=== PATIENT | female | born 1950 | race Caucasian/White ===

== ENCOUNTER → 2019-08-20 00:01 | Outpatient (BNVA) | payer MEDICARE, OTHER, SELFPAY | PROVIDERS: Family Provider Family Medicine; PCP Family Medicine; Visit Provider Family Medicine | DX: M79.641 Pain in right hand (principal) | CPT/HCPCS: 73130 ==

== ENCOUNTER → 2019-12-09 10:56 | Outpatient (BNVA) | payer MEDICARE, OTHER, SELFPAY | PROVIDERS: Family Provider Family Medicine; PCP Family Medicine; Visit Provider Family Medicine | DX: R06.02 Shortness of breath (principal); I10 Essential (primary) hypertension; J32.9 Chronic sinusitis, unspecified; M79.604 Pain in right leg; M79.605 Pain in left leg; Z86.718 Personal history of other venous thrombosis and embolism; D68.59 Other primary thrombophilia; D56.5 Hemoglobin E-beta thalassemia; E61.1 Iron deficiency; Z68.30 Body mass index [BMI] 30.0-30.9, adult | CPT/HCPCS: 80053; 82728; 83036; 83735; 83880; 84100; 84443; 84484; 85025; 85651; 86140 ==

== ENCOUNTER 2020-06-16 09:05 | Outpatient (CLI) | payer MEDICARE, OTHER, SELFPAY ==
--- NOTE | 2020-06-16 09:30 | USCV_ITS ---
Diamond Cochran Age: 70 Gender: F : 1950 Exam Date: 06/16/2020 09:45 Ordering Phys: Racquel Beverly MD ([email or web address]) Technologist: Gee Rosenthal Exam Location: [facility] [place] Indication: HISTORY: PROCEDURES: FINDINGS: There is no evidence of bilateral deep vein thrombosis. No evidence of superficial thrombosis in the bilateral saphenous system. There is reflux noted in the deep system within the popliteal veins bilaterally. There is reflux noted in the superficial system on the right within the SFJ, SSV PROX, and the SSV MID. There is reflux noted in the superficial system on the left within the GSV below the knee. CONCLUSIONS 1. No evidence of DVT in the above-mentioned identifiable veins. 2. The popliteal veins on both sides were found to have significant reflux of greater than 1000 ms. 3. On the right side, significant venous reflux of greater than 500 ms were noted at the proximal and mid small saphenous vein segments. These venous segments were found to be more than 1 cm deep from the surface and with a diameter of 0.61 and 0.69 cm respectively. Significant venous reflux also was noted at the saphenofemoral junction. 4. On the left side, significant venous reflux of greater than 500 ms was noted at the below-knee segment of the greater saphenous vein. This venous segment was greater than 1 cm deep from the surface and was measuring 0.81 cm in diameter The venous diameter , reflux times and depth from the surface are as mentioned above Dr Theresa Alexandra MD [facility] (Electronically Signed) Final Date: 16 June 2020 20:38 S
== END 2020-06-16 09:06 | disposition home or self-care (01) ==
PROVIDERS: PCP Family Medicine; Visit Provider Internal Medicine Cardiovascular Disease
DX: I83.813 Varicose veins of bilateral lower extremities with pain (principal)
CPT/HCPCS: 93970

== ENCOUNTER → 2020-06-29 09:45 | Outpatient (BNVA) | payer MEDICARE, OTHER, SELFPAY | PROVIDERS: PCP Family Medicine; Visit Provider Family Medicine | DX: I82.502 Chronic embolism and thrombosis of unspecified deep veins of left lower extremity (principal); Z95.828 Presence of other vascular implants and grafts | CPT/HCPCS: 85610 ==

== ENCOUNTER 2021-03-27 15:35 | Emergency (ER) | payer MEDICARE, OTHER, SELFPAY ==
[2021-03-27] VITALS (7 sets, daily range): BP systolic 138–184; BP diastolic 80–110; PULSE 72–80; RESP 16–18; TEMP 36.6–36.9; O2SAT 96–98; BMI 52.9
--- NOTE | 2021-03-27 16:38 | ECG_ITS ---
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 Measurements Intervals [place] Rate: 74 P: 57 [place]: 183 QRS: 38 QRSD: 94 T: 5 QT: 386 QTc: 429 Interpretive Statements SINUS RHYTHM Non specific T wave abnormality Compared to ECG 10/29/2017 01:01:00 T-wave abnormality no longer present Electronically Signed On 03-28-2021 21:07:55 CDT by Racquel Beverly M.D. [id number] f
--- NOTE | 2021-03-27 16:38 | CTR_ITS ---
PROCEDURE INFORMATION: Exam: CTA Chest With Contrast Exam date and time: 03/27/2021 4:38 PM Age: 70 years old Clinical indication: Shortness of breath; Patient HX: C/O SOB and HTN w HX of cvt and ivc filter; Additional info: SOB, pmh dvt TECHNIQUE: Imaging protocol: Computed tomographic angiography of the chest with contrast. 3D rendering (Not supervised by radiologist): MIP and/or 3D reconstructed images were created by the technologist. Total images: 814 Radiation optimization: All CT scans at this facility use at least one of these dose optimization techniques: automated exposure control; mA and/or kV adjustment per patient size (includes targeted exams where dose is matched to clinical indication); or iterative reconstruction. Contrast material: OMNI 350; Contrast volume: 68 ml; Contrast route: INTRAVENOUS (IV); COMPARISON: CT Cervical Spine wo* [id number] 10/29/2017 12:44 AM RADIATION DOSE METRICS: Total DLP (mGy-cm): 525.28 FINDINGS: Pulmonary arteries: No visible evidence of pulmonary embolism/pulmonary arterial thrombus. Aorta: The thoracic aorta is nonaneurysmal. No visible intimal flap or dissection. Mild arteriosclerosis. Lungs: No visible active interstitial or alveolar airspace disease. Evidence of mild air trapping of COPD/chronic bronchitis. Pleural spaces: Unremarkable. No pneumothorax. No pleural effusion. Heart: Cardiac size upper limits of normal. No visible pericardial effusion. No visible coronary artery disease. Lymph nodes: No visible active mediastinal or hilar lymphadenopathy. Gallbladder and bile ducts: Status post cholecystectomy. Bones/joints: No visible active or acute osseous pathology. Mild scoliotic curvature of the spine. Soft tissues: Unremarkable. Other findings: Marked obesity. Increased quantum mottle artifact which degrades image quality and detail assessment. CT/CT angio chest PE protcl [id number] IMPRESSION: No visible evidence of pulmonary embolism/pulmonary arterial thrombus. Radiation Dose CTDIVOL = (mGy): DLP = 525.28 (mGy-cm)
--- NOTE | 2021-03-27 16:39 | W.ED.GENADLT ---
HPI - General Adult General: Chief complaint: General Medical Stated complaint: High BP Time Seen by Provider: 03/27/21 16:24 History of Present Illness: HPI narrative: 70-year-old female who has a history of DVT and is on warfarin presents due to shortness of breath and lightheadedness. Reports elevated blood pressure to the 190s over 100 at home. States this has been ongoing for approximately a week and a half. Denies chest pain. Denies lower extremity pain. States she has chronic swelling in bilateral lower extremities. Denies fevers or chills or cough. Denies dysuria or any other focal pain. Denies focal weakness numbness or tingling. Denies any change in urine production. Review of Systems Narrative: - CONSTITUTIONAL: Denies weight loss, fever and chills. - HEENT: Denies changes in vision and hearing. - RESPIRATORY: As above - CV: Denies palpitations and CP. - GI: Denies abdominal pain, nausea, vomiting and diarrhea. - : Denies dysuria and urinary frequency. - MSK: Denies myalgia and joint pain. - SKIN: Denies rash and pruritus. - NEUROLOGICAL: Denies headache, weakness, numbness and syncope. - PSYCHIATRIC: Denies suicidal ideation PFSH ED PFSH: Medical History Chronic deep vein thrombosis of left lower extremity Chronic sinusitis CMC (carpometacarpal joint) sprains CMC arthritis, thumb, degenerative Cubital tunnel syndrome on right Encounter for monitoring Coumadin therapy Hx of deep venous thrombosis Hypertension Presence of IVC filter Varicose vein of leg Surgical History History of colon resection Hx of cholecystectomy Hx of exploratory laparotomy Hx of gastric bypass Hx of inguinal hernia repair Social History Alcohol intake: current Alcohol intake frequency: holidays/special occasions only Physical Exam Narrative: EXAM NARRATIVE: - GENERAL: Alert and oriented x 3. No acute distress. Well-nourished. - EYES: EOMI. Anicteric. - HENT: Atraumatic, no C-spine tenderness. Moist mucous membranes. No scleral icterus. No cervical lymphadenopathy. - LUNGS: Clear to auscultation bilaterally. No accessory muscle use. Equal lung sounds bilaterally. No respiratory distress. - CARDIOVASCULAR: Regular rate and rhythm. No murmur. No JVD. - ABDOMEN: Soft, non-tender and non-distended. Negative CVA tenderness bilaterally, no rebound or guarding, negative Hawthorne sign. No palpable masses. - EXTREMITIES: +2 bilateral lower extremity edema, non-tender. - SKIN: No rashes or lesions. Warm. - NEUROLOGIC: No meningismus or focal neurological deficits. CN II-XII grossly intact. - PSYCHIATRIC: Cooperative. Appropriate mood and affect. Course Vital Signs: Vital signs: Vital Signs Temperature 98.2 F 03/27/21 18:37 Pulse Rate 74 03/27/21 19:16 Respiratory Rate 16 03/27/21 19:16 Blood Pressure 148/82 03/27/21 19:16 Pulse Oximetry 98 03/27/21 19:16 MDM - General Adult MDM Narrative: Medical decision making narrative: 70-year-old female history of DVT presents with shortness of breath and elevated blood pressure reading. Was found to be hypertensive with significant improvement with clonidine. CT scan does not reveal any signs of PE. EKG and troponins do not reveal any sign of acute ischemia or other acute abnormality remainder of lab work is unremarkable. X-ray does not reveal pneumothorax or consolidation. Upon further review patient does admit that she is not taking her Lasix as prescribed and does have lower extremity edema. Instructed her to take her Lasix as prescribed. This will also improve the blood pressure. At this time I believe patient would be safe for discharge and outpatient follow-up. Return precautions provided. Plan was reviewed with the patient who expressed understanding. Questions answered. Patient will follow up with PCP. Patient discharged in stable condition. Lab Data: Labs: Lab Results 03/27/21 03/27/21 03/27/21 16:53 17:11 17:11 WBC 6.3 10^3/uL 10^3/ uL (4.0-10.0) RBC 4.81 10^6/uL 10^6 /uL (4.1-5.3) Hgb 13.8 g/dL g/dL (11.5-15.3) Hct 44.4 % % (37.0-47.0) MCV 92.3 fl fl (81-99) MCH 28.7 pg pg (28.0-34.0) MCHC 31.1 g/dL g/dL (30.0-36.0) RDW 14.2 % % (12.1-15.1) Plt Count 298 10^3/cmm 10^3 /cmm (130-400) MPV 9.2 fL fL (7.4-10.4) Neut % (Auto) 59.9 % % Lymph % (Auto) 30.9 % % Thayer % (Auto) 7.8 % % Eos % (Auto) 0.6 % % Baso % (Auto) 0.6 % % Neut # (Auto) 3.79 10^3/uL 10^3 /uL (1.8-7.7) Lymph # (Auto) 2.0 10^3/uL 10^3/ uL (0.8-4.8) Thayer # (Auto) 0.5 10^3/uL 10^3/ uL (0.2-0.9) Eos # (Auto) 0.0 10^3/uL 10^3/ uL (0.0-0.8) Baso # (Auto) 0.0 10^3/uL 10^3/ uL (0.0-0.1) Nucleated RBC % (a uto) 0 % % Nucleated RBCs # 0.0 /100WBC /100W BC PT 26.40 SECONDS H S ECONDS (12.1-14.9) INR 2.38 H (0.8-1.2) APTT 47.1 SECONDS H SE CONDS (23.9-36.7) Sodium Potassium Chloride Carbon Dioxide Anion Gap BUN Creatinine GFR Calculation Glucose Calculated Osmolal ity Calcium Total Bilirubin AST ALT Alkaline Phosphata se Troponin T Baselin e Troponin T 120 Min macie Delta Troponin T NT-Pro-B Natriuret Pep Total Protein Albumin Globulin TSH Urine Color Yellow (Yellow) Urine Appearance Clear (CLEAR) Urine pH 5 (5-7) Ur Specific Gravit y 1.010 (1.005-1.030) Urine Protein Neg (Negative) Urine Glucose (UA) Norm (Normal) Urine Ketones Negative (Negative) Urine Blood Neg (Negative) Urine Nitrate Negative (Negative) Urine Bilirubin Neg (Negative) Urine Urobilinogen Norm mg/dL mg/dL (Negative) Ur Leukocyte Larissa ase Negative (Negative) Urine RBC None /hpf /hpf (0-2) Urine WBC Rare /hpf /hpf (0-5) Ur Squamous Epith Cells Rare /hpf /hpf (0-5) Amorphous Sediment Not Reportable Urine Bacteria Trace /hpf /hpf (NONE) 03/27/21 03/27/21 03/27/21 17:11 17:11 19:15 WBC RBC Hgb Hct MCV MCH MCHC RDW Plt Count MPV Neut % (Auto) Lymph % (Auto) Thayer % (Auto) Eos % (Auto) Baso % (Auto) Neut # (Auto) Lymph # (Auto) Thayer # (Auto) Eos # (Auto) Baso # (Auto) Nucleated RBC % (a uto) Nucleated RBCs # PT INR APTT Sodium 141 mmol/L mmol/L (136-145) Potassium 4.1 mmol/L mmol/L (3.5-5.1) Chloride 106 mmol/L mmol/L (98-107) Carbon Dioxide 27 mmol/L mmol/L (22-29) Anion Gap 12.1 (5-19) BUN 12 mg/dL mg/dL (8-23) Creatinine 0.6 mg/dL mg/dL (0.5-0.9) GFR Calculation 99.1 mL/min mL/mi n (90-130) Glucose 105 mg/dL mg/dL (65-115) Calculated Osmolal ity 292 mOsm/kg mOsm/ kg (285-295) Calcium 9.0 mg/dL mg/dL (8.5-10.5) Total Bilirubin 0.4 mg/dL mg/dL (0.15-1.2) AST 21 U/L U/L (0-32) ALT 17 U/L U/L (0-33) Alkaline Phosphata se 96 IU/L IU/L (35-105) Troponin T Baselin e 6 ng/L ng/L (0-10) Troponin T 120 Min macie 6.00 ng/L ng/L (0-10) Delta Troponin T 0 ABS# ABS# (0-10) NT-Pro-B Natriuret Pep 185 pg/mL H pg/mL (0-125) Total Protein 6.9 g/dL g/dL (6.6-8.7) Albumin 4.2 g/dL g/dL (3.5-5.2) Globulin 2.7 g/dL g/dL (1.3-4.6) TSH 3.16 uIU/mL uIU/m L (0.27-4.20) Urine Color Urine Appearance Urine pH Ur Specific Gravit y Urine Protein Urine Glucose (UA) Urine Ketones Urine Blood Urine Nitrate Urine Bilirubin Urine Urobilinogen Ur Leukocyte Larissa ase Urine RBC Urine WBC Ur Squamous Epith Cells Amorphous Sediment Urine Bacteria EKG Data^: EKG 1: Computer generated interpretation: Chest CTA 03/27/21 16:38 IMPRESSION: No visible evidence of pulmonary embolism/pulmonary arterial thrombus. Radiation Dose CTDIVOL = (mGy): DLP = 525.28 (mGy-cm) Other EKG comments: Normal sinus rhythm, rate of 74, no sign of acute ischemia or other acute abnormality. EKG 2: Computer generated interpretation: Chest CTA 03/27/21 16:38 IMPRESSION: No visible evidence of pulmonary embolism/pulmonary arterial thrombus. Radiation Dose CTDIVOL = (mGy): DLP = 525.28 (mGy-cm) Other EKG comments: Normal sinus rhythm with PVC, rate of 63, otherwise no sign of acute ischemia or other acute abnormality. Discharge Plan Discharge Prescriptions: No Action multivitamin with minerals [Hair,Skin and Nails] Tablet 2 tab PO ONCE RF: 0 warfarin 5 mg tablet 5 mg PO DAILY Qty: 360 RF: 0 loratadine [Claritin] 10 mg tablet 10 mg PO DAILY 90 Days Qty: 90 RF: 1 cyclobenzaprine 5 mg tablet 5 mg PO TID PRN (Reason: muscle spasm) 30 Days Qty: 90 RF: 0 fluticasone propionate [Flonase Allergy Relief] 50 mcg/actuation spray,suspension 1 spray intranasal BID Qty: 16 RF: 0 epinephrine [EpiPen] 0.3 mg/0.3 mL auto-injector 0.3 mg IM Q10M PRN (Reason: anaphylaxis) Qty: 2 RF: 0 warfarin 5 mg tablet See Rx Instructions mg .ROUTE QDAY Qty: 45 RF: 2 sennosides-docusate sodium [Senna with Docusate Sodium] 8.6-50 mg tablet 2 tab-cap PO TID PRN (Reason: constipation) Qty: 60 RF: 0 multivitamin Tablet 1 tab PO DAILY RF: 0 Singulair 10 mg tablet 10 mg PO BEDTIME RF: 0 amlodipine 2.5 mg Tablet 2.5 mg PO DAILY MDD SEE PHARMACY COMMENT PRN (Reason: Blood Pressure) RF: 0 Colace 100 mg Capsule 100 mg PO QID PRN (Reason: Constipation) RF: 0 hydrochlorothiazide 25 mg Tablet 25 mg PO DAILY RF: 0 Coding Level of Care Code ED Photo Finish Photographer for Gilesg Emily
[2021-03-27] MEDS: cloNIDine 0.1 mg Tablet 0.2 MG PO (17:19)
[2021-03-27 17:22] LABS: Basophils % 0.6 %; Eosinophils % 0.6 %; Hematocrit 44.4 % (37.0-47.0); Hemoglobin 13.8 g/dL (11.5-15.3); Lymphocytes % 30.9 %; Mean Corpuscular HGB Conc 31.1 g/dL (30.0-36.0); Mean Corpuscular Hemoglobin 28.7 pg (28.0-34.0); Mean Corpuscular Volume 92.3 fl (81-99); Mean Platelet Volume 9.2 fL (7.4-10.4); Monocytes # 0.5 10^3/uL (0.2-0.9); Monocytes % 7.8 %; Neutrophils # 3.79 10^3/uL (1.8-7.7); Neutrophils % 59.9 %; Nucleated Red Blood Cells % 0 %; Platelet Count 298 10^3/cmm (130-400); Red Blood Count 4.81 10^6/uL (4.1-5.3); Red Cell Distribution Width 14.2 % (12.1-15.1); White Blood Count 6.3 10^3/uL (4.0-10.0)
[2021-03-27 17:32] LABS: Bacteria Urine TRACE /hpf; Bilirubin Urine Neg (Negative); Blood Urine Neg (Negative); Glucose Urine UA Norm (Normal); Ketones Urine Negative (Negative); Leukocyte Esterase Urine Negative (Negative); Nitrate Urine Negative (Negative); Protein Urine Neg (Negative); Squamous Epithelial Cell Urine RARE /hpf (0-5); Urine Appearance Clear (CLEAR); Urine Color Yellow (Yellow); Urobilinogen Urine Norm (Negative); WBC Urine RARE /hpf (0-5); pH Urine 5 (5-7)
[2021-03-27 17:33] LABS: Add Urine Culture? No
[2021-03-27 17:38] LABS: INR 2.38 (0.8-1.2)
[2021-03-27 17:39] LABS: Partial Thromboplastin Time 47.1 SECONDS (23.9-36.7)
[2021-03-27 17:56] LABS: Troponin(5th) Baseline 6 ng/L (0-10)
[2021-03-27 18:03] LABS: Alanine Aminotransferase 17 U/L (0-33); Albumin Level 4.2 g/dL (3.5-5.2); Alkaline Phosphatase 96 IU/L (35-105); Anion Gap 12.1 (5-19); Aspartate Amino Transferase 21 U/L (0-32); Blood Urea Nitrogen 12 mg/dL (8-23); Carbon Dioxide 27 mmol/L (22-29); Chloride 106 mmol/L (98-107); Globulin 2.7 g/dL (1.3-4.6); Glomerular Filtration Rate 99.1 mL/min (90-130); Glucose 105 mg/dL (65-115); NT Pro B Type Natriuretic Pept 185 pg/mL (0-125); Osmolality Calculated 292 mOsm/kg (285-295); Potassium 4.1 mmol/L (3.5-5.1); Sodium 141 mmol/L (136-145); Thyroid Stimulating Hormone 3.16 uIU/mL (0.27-4.20); Total Bilirubin 0.4 mg/dL (0.15-1.2); Total Protein 6.9 g/dL (6.6-8.7)
[2021-03-27] MEDS: iohexol 350 mg/mL 100 mL Btl IV (18:20)
--- NOTE | 2021-03-27 18:38 | ECG_ITS ---
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 Measurements Intervals [place] Rate: 63 P: 33 NE: 162 QRS: 38 QRSD: 90 T: 1 QT: 415 QTc: 425 Interpretive Statements SINUS RHYTHM WITH OCCASIONAL VENTRICULAR PREMATURE COMPLEXES Non specific T wave abnormality Compared to ECG 03/27/2021 17:27:59 Ventricular premature complex(es) now present Electronically Signed On 03-28-2021 21:28:02 CDT by Racquel Beverly M.D. [id number] f
[2021-03-27 19:46] LABS: Troponin 5 2HR Delta 0 ABS# (0-10)
== END 2021-03-27 20:21 | disposition home or self-care (01) ==
PROVIDERS: Emergency Provider Emergency Medicine; PCP Family Medicine
DX: R06.02 Shortness of breath (principal); R42 Dizziness and giddiness; Z79.01 Long term (current) use of anticoagulants; I10 Essential (primary) hypertension
CPT/HCPCS: 71275; 80053; 81001; 83880; 84443; 84484; 85025; 85610; 85730; 93005; 99284; Q9967

== ENCOUNTER → 2021-04-05 00:01 | Outpatient (BNVA) | payer MEDICARE, OTHER, SELFPAY | PROVIDERS: PCP Family Medicine; Visit Provider Registered Nurse | DX: M79.10 Myalgia, unspecified site (principal); I10 Essential (primary) hypertension | CPT/HCPCS: 80061; 82306; 82607 ==

== ENCOUNTER 2021-07-05 20:00 | Outpatient (CLI) | payer MEDICARE, OTHER, SELFPAY | END 2021-07-05 20:01 | disposition home or self-care (01) | LOC: SLEEP 07-06 07:43 | PROVIDERS: PCP Registered Nurse; Visit Provider Registered Nurse | DX: R53.82 Chronic fatigue, unspecified (principal); G47.10 Hypersomnia, unspecified; I10 Essential (primary) hypertension; G47.33 Obstructive sleep apnea (adult) (pediatric) | CPT/HCPCS: 95810 ==

== ENCOUNTER → 2021-09-20 11:00 | Outpatient (BNVA) | payer MEDICARE, OTHER, SELFPAY | PROVIDERS: PCP Registered Nurse; Visit Provider Internal Medicine Cardiovascular Disease | DX: I10 Essential (primary) hypertension (principal); I83.813 Varicose veins of bilateral lower extremities with pain; Z95.828 Presence of other vascular implants and grafts; Z86.718 Personal history of other venous thrombosis and embolism; K56.609 Unspecified intestinal obstruction, unspecified as to partial versus complete obstruction; Z87.891 Personal history of nicotine dependence; Z79.01 Long term (current) use of anticoagulants | CPT/HCPCS: 99213; 99214 ==

== ENCOUNTER → 2021-11-16 11:03 | Outpatient (BNVA) | payer MEDICARE, OTHER, SELFPAY | PROVIDERS: PCP Registered Nurse; Visit Provider Registered Nurse | DX: R05.9 Cough, unspecified (principal); Z20.822 Contact with and (suspected) exposure to COVID-19 | CPT/HCPCS: 87400; 87635 ==

== ENCOUNTER → 2022-05-26 11:56 | Outpatient (BNVA) | payer MEDICARE, OTHER, SELFPAY | PROVIDERS: PCP Registered Nurse; Visit Provider Registered Nurse | DX: E78.5 Hyperlipidemia, unspecified (principal); I10 Essential (primary) hypertension | CPT/HCPCS: 80053; 80061; 85025 ==

== ENCOUNTER 2022-05-31 11:22 | Outpatient (CLI) | payer MEDICARE, OTHER, SELFPAY ==
--- NOTE | 2022-05-31 11:33 | MM_ITS ---
WS: [id number] BILATERAL SCREENING DIGITAL TOMOSYNTHESIS MAMMOGRAM WITH CAD HISTORY: Z12.31 - Encounter for screening mammogram for malignant ... COMPARISON: 07/03/2018, 09/19/2011, 07/01/2016 Bilateral CC and MLO views with tomosynthesis and synthetic mammography submitted. Computer aided det ection analyzed. Breast composition: The breasts are heterogeneously dense, which may obscure small masses. No suspici ous masses, microcalcifications or architectural distortion. Well-circumscribed mass posterior to the RIGHT nipple measures 7 mm. Stable and present on the study from 2016. Cluster of lymph nodes upper outer quadrant LEFT breast. MM/[place] [id number] IMPRESSION: BI-RADS: 2-Benign FOLLOW UP: 1 Year Follow-up
--- NOTE | 2022-05-31 11:41 | XR_ITS ---
WS: [id number] DEXA (DUAL ENERGY X-RAY ABSORPTIOMETRY) Bone mineral density was performed using a Azullo machine. HISTORY: M81.0 - Age-related osteoporosis without current pathological fracture... COMPARISON: None available. Lumbar spine BMD (L1-L4): 1.206 g/cm2 T score: 0.2 Z score: 0.7 Total hip BMD: Left: 0.705 g/cm2. T score: -2.4 Z score: -1.7 Right: 0.608 g/cm2. T score: -3.2 Z score: -2.5 10 year probability of a major osteoporotic fracture is 14.2%. XR/XR DEXA axial skeleton* [id number] IMPRESSION: OSTEOPOROSIS based upon the WHO classification for females.
== END 2022-05-31 11:23 | disposition home or self-care (01) ==
PROVIDERS: PCP Registered Nurse; Visit Provider Registered Nurse
DX: Z12.31 Encounter for screening mammogram for malignant neoplasm of breast (principal); M81.0 Age-related osteoporosis without current pathological fracture
CPT/HCPCS: 77063; 77067; 77080

== ENCOUNTER → 2022-06-27 10:20 | Outpatient (BNVA) | payer MEDICARE, OTHER, SELFPAY | PROVIDERS: PCP Registered Nurse; Visit Provider Internal Medicine Cardiovascular Disease | DX: R07.89 Other chest pain (principal); I10 Essential (primary) hypertension; Z95.828 Presence of other vascular implants and grafts; Z86.718 Personal history of other venous thrombosis and embolism; K56.609 Unspecified intestinal obstruction, unspecified as to partial versus complete obstruction; I83.813 Varicose veins of bilateral lower extremities with pain; Z87.891 Personal history of nicotine dependence; Z79.01 Long term (current) use of anticoagulants | CPT/HCPCS: 99214; Q3014 ==

== ENCOUNTER → 2022-08-04 11:49 | Outpatient (BNVA) | payer MEDICARE, OTHER, SELFPAY | PROVIDERS: PCP Registered Nurse; Visit Provider Registered Nurse | DX: Z51.81 Encounter for therapeutic drug level monitoring (principal); Z79.01 Long term (current) use of anticoagulants | CPT/HCPCS: 85610 ==

== ENCOUNTER 2022-08-10 11:43 | Outpatient (CLI) | payer MEDICARE, OTHER, SELFPAY ==
[2022-08-10 12:28] LABS: INR 1.51 (0.8-1.2)
== END 2022-08-10 11:44 | disposition home or self-care (01) ==
LOC: LAB 11:48
PROVIDERS: PCP Registered Nurse; Visit Provider Registered Nurse
DX: Z86.718 Personal history of other venous thrombosis and embolism (principal); Z79.01 Long term (current) use of anticoagulants
CPT/HCPCS: 36415; 85610

== ENCOUNTER 2022-09-16 08:18 | Outpatient (CLI) | payer MEDICARE, OTHER, SELFPAY ==
--- NOTE | 2022-09-16 | ECG_ITS ---
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 Interpretive Statements NAME OF STUDY: LEXISCAN SESTAMIBI STRESS TEST INDICATION: [Shortness of Breath, ] Procedure: At the baseline, the blood pressure was 125/82 mmHg with a heart rate of 62 bpm. The electrocardiogram showed normal sinus rhythm, normal axis with normal ST and T's. The Lexiscan was infused over a period of 20 seconds. A total of 0.4 mg of Lexiscan was infused. The stress phase was continued for a total of 5 minutes. Heart rate was at the end of stress phase was 74 bpm and a blood pressure of 128/65 mmHg. The EKG at the peak infusion revealed normal sinus rhythm with no significant ST-T wave changes. Sestamibi was injected 20 seconds after the Lexiscan infusion. Blood pressure at the end of recovery phase was 134/67 mmHg with a heart rate of 74 bpm. Conclusion: 1. Normal EKG response to Lexiscan infusion 2. No Lexiscan induced chest pain or cardiac arrhythmia. 3. Normal blood pressure and heart rate response. 4. Sestamibi/sestamibi perfusion scan pending; see separate report. Electronically Signed On 09-18-2022 14:30:58 CDT by Ismael Rand M.D. [id number]
[2022-09-16 08:25] VITALS: BMI 48.4
--- NOTE | 2022-09-16 08:26 | NMCV_ITS ---
NM agustin perf SPECT r/s* [id number] Diamond Cochran Age: 72 Gender: F : 1950 Exam Date: 09/16/2022 09:52 Ordering Phys: Racquel Beverly MD ([email or web address]) Technologist: EMRE Marin Exam Location: [facility] Indications: CHEST PAIN STRESS TEST Please see separate stress test report in [facility] for full findings IMAGE PROTOCOL Rest/Stress 1 Lexiscan Day Radiopharmaceutical Dose (mCi) Administration Site Administered by Rest: Tc-99m 10.5 IV Kale Britt, BRIDGE LEVERMAN Sestamibi Stress:Tc-99m 32.3 IV Kale Britt, BRIDGE LEVERMAN Sestamibi Rest: 16-Sep-2022 60 Discovery 630 Stress: 16-Sep-2022 30 Discovery 630 0.4mg Lexiscan. Supine position only as patient was unable to lay prone. SPECT RESULTS Technical Quality: Excellent Raw Data Analysis: Normal, Breast attenuation Image Corrections: No attenuation or motion correction applied Summed Stress Score: 4 Summed Rest Score: 5 Summed Difference Score: 1 PERFUSION FINDINGS There is a medium sized, partially reversible perfusion defect noted in the inferolateral wall. This is consistent with medium sized area of prior infarct with significant daphne-infarct ischemia in left circumflex artery territory. FUNCTIONAL RESULTS (calculated via Gated SPECT) Stress Image LV EF (%): 85 Stress EDV (mL):102 TID: 1.16 Stress ESV (mL):15 FUNCTIONAL FINDINGS: There is normal left ventricular systolic function. IMPRESSIONS 1. 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 2. LV systolic function is normal Ismael Rand MD (Electronically Signed) Final Date: 17 September 2022 15:14 S
[2022-09-16] MEDS: regadenoson 0.4 Mg/5 ml Syringe IVP (11:25)
[2022-09-16 11:47] VITALS: BP 134/67; PULSE 76
== END 2022-09-16 08:19 | disposition home or self-care (01) ==
LOC: CDL 08:21
PROVIDERS: PCP Registered Nurse; Visit Provider Internal Medicine Cardiovascular Disease
DX: R07.9 Chest pain, unspecified (principal)
CPT/HCPCS: 36415; 78452; 93017; 96374; A9500; J2785

== ENCOUNTER → 2022-10-03 11:48 | Outpatient (BNVA) | payer MEDICARE, OTHER, SELFPAY | PROVIDERS: PCP Registered Nurse; Visit Provider Registered Nurse | DX: E53.8 Deficiency of other specified B group vitamins (principal); R06.02 Shortness of breath; I10 Essential (primary) hypertension; E55.9 Vitamin D deficiency, unspecified | CPT/HCPCS: 80048; 82306; 82607; 83880; 85025; 85610 ==

== ENCOUNTER 2022-10-10 08:55 | Outpatient (CLI) | payer MEDICARE, OTHER, SELFPAY ==
[2022-10-10] VITALS (9 sets, daily range): BP systolic 142–186; BP diastolic 70–107; PULSE 62–72; RESP 13–16; TEMP 37.1; O2SAT 96–98; BMI 49.4
--- NOTE | 2022-10-10 09:00 | XACV_ITS ---
Exam Room: 2 Ht: 157 cm Wt: 122 kg BSA: 2.39 m2 Gender: Female : 1950 Any Known Allergies: Other Exam Priority: Routine Procedure(s): Procedure Description: Diagnostic procedure Procedure Description: Left Heart Catheterization Procedure Description: Left ventriculography Procedure Description: Coronary Angiography Diagnostic Cath Status: Elective Diagnostic Findings * INDICATION: Worsening dyspnea on exertion/abnormal stress test. * Left Main has no significant disease. * Distal Right Coronary Artery: mild 40% stenosis, LESLIE: 3 flow. * Left Anterior Descending has no disease. * Mid Circumflex: moderate 50% stenosis, LESLIE: 3 flow. * Coronary angiography shows right dominance. Conclusions 1. Non-obstructive coronary artery disease. 2. Normal left ventricular systolic function. Ejection fraction of 60%. Recommendations * Aggressive risk factor modification. * Outpatient cardiology follow up in 4 weeks. Interventional RX Recommendation: medical therapy and/or counseling Diagnostic RX Recommendation: medical therapy and/or counseling Ventriculography Ejection Fraction: 60.0 % Pressures Phase:Rest AO : 156 / 86 ( 116 ) @ 12:07:00 PM 163 / 86 ( 121 ) @ 12:10:00 PM 161 / 72 ( 111 ) @ 12:15:00 PM 161 / 72 ( 111 ) @ 12:15:00 PM LV : 158 / -11 / 9 @ 12:13:00 PM 171 / -14 / 10 @ 12:14:00 PM 169 / -13 / 13 @ 12:15:00 PM Valves Phase:DefaultPhase AV : 7.0 @ 11:24:05 AM 7.0 @ 11:24:05 AM AV Mean Gradient: 11.0 @ 11:24:05 AM Clinical Evaluation EBL: 5mL-10mL Procedural Details Procedure Consent Obtained. Admit Source: Out Patient. Pre-Procedure Time Out. Identified patient by full name and date of as verbalized by the patient/guarantor. Does the consent match the physician's order: Yes. Accurate & Complete Informed Consent: Yes. Inpatient/Outpatient History & Physical on Chart: Yes. If H&P is completed, is and addenduem needed: No; If yes, is the addendum complete: N/A. Visualize and Verify Site with Patient/Guarantor: N/A. Relevant Radiology Images available: Yes. The risks, benefits, and alternatives of sedation and/or procedure were discussed by physician. The patient agrees to continue. Procedure started. [facility] Clinical Fraility Score: 3: Managing Well. Medical Record Assistant Indications: Worsening Angina. Chest Pain Symptom Assessment: Typical Angina Symptoms. Correct patient, site and procedure confirmed by cath team. Current diagnosis: Chest Pain, Abnormal stress test. PERRLA. 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 Lungs clear x 5 lobes. IV Site on Arrival: 20 gauge in the right anticubital. IV Fluids: 0.9% NaCl at 75ml/hr. 0 mL infused prior to chemical lab supervisor. Pre Procedural Pulses: bilateral radial was 3+. Pre Procedural Pulses: bilateral posterior tibial was 1+. Pre Procedural Pulses: bilateral dorsalis pedis was 1+. Oxygen started at 2liters/min via nasal canula. right radial was prepped with chloroprep then draped in the usual sterile fashion. right groin was prepped with chloroprep then draped in the usual sterile fashion. Physician notified. Baseline sample Acquired. HR: 79 BPM. Physician arrived. Physician scrubbed in. Immediate Pre-Procedure Time Out. Correct Patient: Yes; Correct Procedure: Yes; Correct Site: Yes; Correct Patient Position: Yes; Correct Supplies: Yes; Dried Flammable Prep: Yes; Blood Products Available: No;. Lidocaine 1% infiltrated to the right radial. Arterial access obtained. Unable to advance access wire, wire and needle out. Ultrasound obtained to assist with femoral artery access. Lidocaine 1% infiltrated to the right groin. Arterial access obtained with micropuncture set. Lidocaine 1% infiltrated to the right groin. A 5 maltese JL4 catheter in over wire. Multiple views taken of left coronary artery. Catheter removed over the exchange wire. A 5 maltese JR4 catheter in over wire. Multiple views taken of right coronary artery. Catheter removed over the exchange wire. A 5 maltese Angled Pig catheter in over wire. EDP Sample taken: LV 158/-12,9; HR: 73 BPM; SpO2: 98%. LV gram performed in [place] @ 10 mL/second for a total of 30 mL. EDP Sample taken: LV 171/-15,10; HR: 77 BPM; SpO2: 99%. Pullback taken: LV 169/-14,13; AO 161/72(111); Mean: 11mmHg, Peak to Peak: 7mmHg, SEP: 21sec/min; HR: 75 BPM; SpO2: 99%. Catheter removed over the exchange wire. A Right femoral angiogram was performed to determine safe placement of closure device. Lidocaine 1% infiltrated to the right groin. Post Procedure: Pulses reassessed and unchanged. PERRLA. 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 No VTE prophylaxis required. Medication's Wasted: Heparin = 1000 unit. Medication's Wasted: Nitro = 49.8 mg. Total IV fluids: 35 mL. A Angio-Seal VIP ([facility]) was successful obtaining hemostatsis at the Right Femoral artery insertion site. EXP 04-11-2023 LOT # [id number]. Post-op diagnosis: Non-obstructive CAD. Complications: None. Estimated blood loss: 5mL-10mL. Responsiveness - Normal response to verbal stimuli; alert and oriented, PERRLA. Airway - Unaffected, no intervention required; spontaneous ventilation. Circulation: W/N/L, pulses unchanged. Nausea/Vomiting: No. Procedure completed. Patient transferred by stretcher to CPRU. Vital chart was stopped. Access Site Site: Right Femoral artery Sheath Size: 6 Fr Hemostasis Method: Angio-Seal VIP ([facility]) Hemostasis Success: Successful Procedure Medications Start: 10:50 AM Stop: 10:50 AM Medication: Versed Amount: 1 mg Route: I.V. Start: 10:53 AM Stop: 10:53 AM Medication: Fentanyl Amount: 25 mcg Route: I.V. Start: 10:56 AM Stop: 10:56 AM Medication: Nitrogylcerin Amount: 200 mcg Route: I.A. Start: 10:58 AM Stop: 10:58 AM Medication: Versed Amount: 1 mg Route: I.V. Start: 10:58 AM Stop: 10:58 AM Medication: Fentanyl Amount: 25 mcg Route: I.V. Start: 11:04 AM Stop: 11:04 AM Medication: Versed Amount: 1 mg Route: I.V. Start: 11:16 AM Stop: 11:16 AM Medication: Fentanyl Amount: 50 mcg Route: I.V. Start: 11:18 AM Stop: 11:18 AM Medication: Versed Amount: 1 mg Route: I.V. I, the attending physician, have reviewed and verified all procedure medications. Yes, all medications given per verbal order History/Risk Factors Hypertension: Yes Dyslipidemia: Yes Peripheral Arterial Disease (PAD): No Myocardial Infarction (IL): No Obesity: No Renal Disease: No Tobacco Use: Former Prior Interventions PCI: No CABG: No Valve Surgery: No Report Signatures Finalized by Ismael Rand MD on 10/24/2022 08:57 AM
[2022-10-10] MEDS: diphenhydrAMINE 50 mg Capsule PO (09:55)
[2022-10-10] MEDS: aspirin 325 mg Tablet PO (09:55)
--- NOTE | 2022-10-10 11:35 | SUR.EXTENDED ---
Received the patient back from the open hearth laborer via cot s/p diagnostic LHC. Patient drowsy but, awakens to voice. A & O x3. Dressing to right groin dry and intact. ANgioseal was place din the open hearth laborer. No bleeding or hematoma noted. financial services assistant placed and vital signs obtained. NS infusing at 75ml/hr fromthe open hearth laborer to the PIV in the right AC. patient with no concerns voiced at this time.
--- NOTE | 2022-10-10 12:30 | P.HP_ITS ---
Same Day Surgery H&P Indication for Procedure/HPI DATE OF PROCEDURE: October 10, 2022 CHIEF COMPLAINT/INDICATIONFOR SURGICAL PROCEDURE: Worsening dyspnea on exertion/abnormal stress test PREOP DIAGNOSIS: Worsening dyspnea on exertion/abnormal stress test PLANNED PROCEDURE: Operation Date: 10/10/22 10:00 Proposed Procedures p [facility] w/wo 84828,R07.9,R94.39(Left) - Ismael Rand M.D Possible percutaneous coronary intervention 72-year-old woman with past medical history of DVTs, hypertension who has been having worsening dyspnea on exertion. In her chart pulmonary embolism history as mentioned however she denies any history of PE mentions that she had multiple DVTs and has IVC filter in place. She had a stress test that was abnormal. Plan for coronary angiogram with possible percutaneous coronary intervention. Medications/Allergies* Home Medications Medication Instructions Recorded Confirmed Type cholecalciferol (vitamin D3) 25 25 mcg PO DAILY 05/26/21 10/07/22 History mcg (1,000 unit) capsule ibuprofen 200 mg tablet 200 mg PO Q6H PRN Pain 06/27/22 10/10/22 History cetirizine 10 mg tablet (Zyrtec) 10 mg PO DAILY 10/07/22 10/07/22 History docusate sodium 100 mg capsule 200 mg PO BID 10/07/22 10/07/22 History (Colace) multivitamin with minerals 2 tab PO DAILY 10/07/22 10/07/22 History (Hair,Skin and Nails tablet) potassium 99 mg tablet 198 mg PO DAILY 10/07/22 10/07/22 History Allergies/Adverse Reactions Allergy/AdvReac Type Severity Reaction Status Date / Time bee venom protein (honey bee) Allergy ALGY-Anaphy Verified 10/10/22 10:42 laxis egg Allergy Unknown Verified 10/10/22 10:42 hydrocodone Allergy Unknown Verified 10/10/22 10:42 milk Allergy Unknown Verified 10/10/22 10:42 procaine [From Novocain] Allergy Unknown Verified 10/10/22 10:42 Current Medications: Generic Name Dose Route Start Last Admin Trade Name Freq PRN Reason Stop Dose Admin Sodium Chloride 1,000 mls @ 50 mls/hr 10/10/22 09:00 10/10/22 09:18 Sodium Chloride 0.9% IV 05/02/23 04:59 Not Given .Q20H ONE Pertinent History/Comorbid Conditions* Medical History (Updated 10/04/22 @ 12:08 by EUGENE Thompson) 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 of left lower extremity CMC (carpometacarpal joint) sprains CMC arthritis, thumb, degenerative Cubital tunnel syndrome on right Encounter for monitoring Coumadin therapy Hx of deep venous thrombosis Hypercholesterolemia Hypertension Presence of IVC filter Varicose veins of both lower extremities Venous stasis of both lower extremities Surgical History (Updated 12/03/19 @ 20:57 by Racquel Beverly MD) History of colon resection Hx of cholecystectomy Hx of exploratory laparotomy Hx of gastric bypass Hx of inguinal hernia repair Family History (Updated 05/26/22 @ 15:33 by Giuliana Quiroga LPN) Heart disease Brother Father Cancer Grandmother breast cancer(paternal) uterus(maternal) Mother throat Brother Denies family history of Diabetes Chronic kidney disease (CKD) Lung disease Social History Smoking and tobacco status: former smoker (quit in 1980) Alcohol intake: current Alcohol intake frequency: holidays/special occasions only Substance/Drug Use: never Adopted: No Caregiver/support person: No Lives independently: No Household members: spouse Marital status: service: No Current occupational status: retired Sexually active: Yes Do you think of yourself as: Straight/Heterosexual Current gender identity: Female Pertinent Exam Findings alert, oriented x 3, clear to auscultation bilaterally and regular rate & rhythm Conscious Sedation Assessment PATIENT ASSESSED PRIOR TO SEDATION, WITH NO CHANGE NOTED: Yes AIRWAY EVAL/ANESTHESIA PLAN: normal airway, see other exam findings, ASA III, Local Anesthesia, Risks, benefits & alternatives of sedation and/or procedure discussed and Patient agrees to continue as planned Recommendations Surgery/Procedure today (Left heart cath with possible percutaneous coronary intervention) Coding Level of Care Code Acute Code for Chg Fwd Diagnoses
== END 2022-10-10 18:45 | disposition home or self-care (01) ==
LOC: CCL 08:57 → CSU 15:19
PROVIDERS: PCP Registered Nurse; Visit Provider Internal Medicine
DX: I25.10 Atherosclerotic heart disease of native coronary artery without angina pectoris (principal); R93.49 Abnormal radiologic findings on diagnostic imaging of other urinary organs; R94.39 Abnormal result of other cardiovascular function study; Z86.718 Personal history of other venous thrombosis and embolism; I10 Essential (primary) hypertension; Z87.891 Personal history of nicotine dependence; E78.5 Hyperlipidemia, unspecified
CPT/HCPCS: 36415; 93458; 96361; 96365; 99152; 99153; C1760; C1769; C1887; C1894; G0269; J1644; J2250; J3010; J3490; J7030; Q0163; Q9967

== ENCOUNTER → 2022-10-20 13:59 | Outpatient (BNVA) | payer MEDICARE, OTHER, SELFPAY | PROVIDERS: PCP Registered Nurse; Visit Provider Nurse Practitioner Family | DX: I25.10 Atherosclerotic heart disease of native coronary artery without angina pectoris (principal); Z87.891 Personal history of nicotine dependence; I10 Essential (primary) hypertension | CPT/HCPCS: 80048; 99214 ==

== ENCOUNTER → 2022-11-01 09:39 | Outpatient (BNVA) | payer MEDICARE, OTHER, SELFPAY | PROVIDERS: PCP Registered Nurse; Visit Provider Registered Nurse | DX: R30.0 Dysuria (principal) | CPT/HCPCS: 81000; 87086 ==

== ENCOUNTER 2022-11-09 07:36 | Outpatient (RCR) | payer MEDICARE, OTHER, SELFPAY | END 2022-11-09 23:59 | disposition home or self-care (01) | LOC: SPT 07:36 | PROVIDERS: PCP Registered Nurse; Visit Provider Registered Nurse | DX: M53.3 Sacrococcygeal disorders, not elsewhere classified (principal); L82.0 Inflamed seborrheic keratosis; L82.1 Other seborrheic keratosis; B07.8 Other viral warts; L81.4 Other melanin hyperpigmentation; D22.5 Melanocytic nevi of trunk | CPT/HCPCS: 17110; 97161; 99213 ==

== ENCOUNTER 2022-11-10 06:00 | Outpatient (RCR) | payer MEDICARE, OTHER, SELFPAY | END 2022-12-09 23:59 | disposition home or self-care (01) | LOC: SPT 06:00 | PROVIDERS: PCP Registered Nurse; Visit Provider Registered Nurse | DX: M53.3 Sacrococcygeal disorders, not elsewhere classified (principal) | CPT/HCPCS: 97110 ==

== ENCOUNTER 2022-12-10 06:00 | Outpatient (RCR) | payer MEDICARE, OTHER, SELFPAY | END 2023-01-09 23:59 | disposition home or self-care (01) | LOC: SPT 06:00 | PROVIDERS: PCP Registered Nurse; Visit Provider Registered Nurse | DX: M53.3 Sacrococcygeal disorders, not elsewhere classified (principal) | CPT/HCPCS: 97110 ==

== ENCOUNTER → 2022-12-14 09:25 | Outpatient (BNVA) | payer MEDICARE, OTHER, SELFPAY | PROVIDERS: PCP Registered Nurse; Visit Provider Nurse Practitioner Family | DX: B07.8 Other viral warts (principal); L55.0 Sunburn of first degree; L57.8 Other skin changes due to chronic exposure to nonionizing radiation | CPT/HCPCS: 17110; 99213 ==

== ENCOUNTER → 2022-12-26 10:51 | Outpatient (BNVA) | payer MEDICARE, OTHER, SELFPAY | PROVIDERS: PCP Registered Nurse; Visit Provider Internal Medicine Cardiovascular Disease | DX: I10 Essential (primary) hypertension (principal); Z95.828 Presence of other vascular implants and grafts; Z86.718 Personal history of other venous thrombosis and embolism; K56.609 Unspecified intestinal obstruction, unspecified as to partial versus complete obstruction; I83.813 Varicose veins of bilateral lower extremities with pain; I25.10 Atherosclerotic heart disease of native coronary artery without angina pectoris; Z87.891 Personal history of nicotine dependence | CPT/HCPCS: 99214 ==

== ENCOUNTER → 2023-01-05 10:38 | Outpatient (BNVA) | payer MEDICARE, OTHER, SELFPAY | PROVIDERS: PCP Registered Nurse; Visit Provider Nurse Practitioner Family | DX: B07.8 Other viral warts (principal); L08.89 Other specified local infections of the skin and subcutaneous tissue; L23.7 Allergic contact dermatitis due to plants, except food; L55.0 Sunburn of first degree; L57.8 Other skin changes due to chronic exposure to nonionizing radiation | CPT/HCPCS: 11900; 17110; 99214 ==

== ENCOUNTER → 2023-02-08 09:54 | Outpatient (BNVA) | payer MEDICARE, OTHER, SELFPAY | PROVIDERS: PCP Registered Nurse; Visit Provider Nurse Practitioner Family | DX: B07.8 Other viral warts (principal); L08.89 Other specified local infections of the skin and subcutaneous tissue; L57.8 Other skin changes due to chronic exposure to nonionizing radiation | CPT/HCPCS: 99213 ==

== ENCOUNTER → 2023-02-15 08:25 | Outpatient (BNVA) | payer MEDICARE, OTHER, SELFPAY | PROVIDERS: PCP Registered Nurse; Visit Provider Nurse Practitioner Family | DX: B07.8 Other viral warts (principal); L57.8 Other skin changes due to chronic exposure to nonionizing radiation; L81.4 Other melanin hyperpigmentation | CPT/HCPCS: 11102; 99213 ==

== ENCOUNTER → 2023-03-01 16:37 | Outpatient (BNVA) | payer MEDICARE, OTHER, SELFPAY | PROVIDERS: PCP Registered Nurse; Visit Provider Registered Nurse | DX: D68.59 Other primary thrombophilia (principal); I48.91 Unspecified atrial fibrillation | CPT/HCPCS: 85610 ==

== ENCOUNTER → 2023-04-17 08:05 | Outpatient (BNVA) | payer MEDICARE, OTHER, SELFPAY | PROVIDERS: PCP Registered Nurse; Visit Provider Nurse Practitioner Family | DX: B07.8 Other viral warts (principal); L57.8 Other skin changes due to chronic exposure to nonionizing radiation; L81.4 Other melanin hyperpigmentation; D22.4 Melanocytic nevi of scalp and neck; L82.1 Other seborrheic keratosis | CPT/HCPCS: 99213 ==

== ENCOUNTER → 2023-05-29 10:11 | Outpatient (BNVA) | payer MEDICARE, OTHER, SELFPAY | PROVIDERS: PCP Registered Nurse; Visit Provider Registered Nurse | DX: I10 Essential (primary) hypertension (principal) | CPT/HCPCS: 80053; 80061; 82607; 84443; 85025 ==

== ENCOUNTER → 2023-06-29 10:56 | Outpatient (BNVA) | payer MEDICARE, OTHER, SELFPAY | PROVIDERS: PCP Registered Nurse; Visit Provider Nurse Practitioner Family | DX: I10 Essential (primary) hypertension (principal); I25.10 Atherosclerotic heart disease of native coronary artery without angina pectoris; I73.9 Peripheral vascular disease, unspecified; Z87.891 Personal history of nicotine dependence; Z79.01 Long term (current) use of anticoagulants | CPT/HCPCS: 99214 ==

== ENCOUNTER 2023-07-05 08:50 | Outpatient (CLI) | payer MEDICARE, OTHER, SELFPAY ==
--- NOTE | 2023-07-05 08:54 | MM_ITS ---
WS: [id number] BILATERAL SCREENING DIGITAL TOMOSYNTHESIS MAMMOGRAM WITH CAD HISTORY: Z12.39 - Encounter for other screening for malignant neop... COMPARISON: 05/31/2022, 07/03/2018 and 09/19/2011 Bilateral CC and MLO views with tomosynthesis and synthetic mammography submitted. Computer aided det ection analyzed. Breast composition: There are scattered areas of fibroglandular density. No suspicious masses, microc alcifications or architectural distortion. Several benign calcifications in each breast. There are al so several bilateral breast asymmetries. These asymmetries have been stable over multiple prior studi es including 09/19/2011 exam. IMPRESSION: MM/[place] [id number] BI-RADS: 2-Benign FOLLOW UP: 1 Year Follow-up
== END 2023-07-05 08:51 | disposition home or self-care (01) ==
LOC: RAD 08:51
PROVIDERS: PCP Registered Nurse; Visit Provider Nurse Practitioner Women's Health
DX: Z12.31 Encounter for screening mammogram for malignant neoplasm of breast (principal); R92.323 Mammographic fibroglandular density, bilateral breasts; R92.1 Mammographic calcification found on diagnostic imaging of breast
CPT/HCPCS: 77063; 77067

== ENCOUNTER 2023-07-18 11:28 | Outpatient (CLI) | payer MEDICARE, OTHER, SELFPAY ==
--- NOTE | 2023-07-18 12:30 | CTR_ITS ---
PROCEDURE INFORMATION: Exam: CTA Abdominal Aorta and Bilateral Lower Extremities (Run-off) With Contrast Exam date and time: 07/18/2023 12:20 PM Age: 73 years old Clinical indication: Pain; Prior surgery; Surgery date: 6+ months; Surgery type: Vena cava filter, lap band, gb, hernias; Patient HX: Numbness in bilateral legs x 2 years, checking migration of ivc filter; Additional info: Claudication, numbness TECHNIQUE: Imaging protocol: Computed tomographic angiography of the of the abdominal aorta, pelvis and bilateral lower extremities with contrast. 3D rendering (Not supervised by radiologist): MIP and/or 3D reconstructed images were created by the technologist. Radiation optimization: All CT scans at this facility use at least one of these dose optimization techniques: automated exposure control; mA and/or kV adjustment per patient size (includes targeted exams where dose is matched to clinical indication); or iterative reconstruction. Contrast material: OMNI 350; Contrast volume: 95 ml; Contrast route: INTRAVENOUS (IV); COMPARISON: CR XR abdomen min 2V [id number] 08/04/2017 5:24 PM RADIATION DOSE METRICS: Total DLP (mGy-cm): 2056.88 FINDINGS: Aorta: No aortic aneurysm. No aortic dissection. Celiac trunk and mesenteric arteries: No occlusion or significant stenosis. Renal arteries: No occlusion or significant stenosis. Right iliac arteries: No occlusion or significant stenosis. Right femoral/popliteal arteries: No occlusion or significant stenosis. Right infrapopliteal arteries: No occlusion or significant stenosis. Left iliac arteries: No occlusion or significant stenosis. Left femoral/popliteal arteries: No occlusion or significant stenosis. Left infrapopliteal arteries: No occlusion or significant stenosis. Veins: IVC filter in place terminating below the renal veins. The filter struts penetrate the luminal wall of the IVC. There is also slight tilting of the filter. Varicose veins in the right thigh and bilateral calf. Liver: No mass. Diaphragm: Small hiatal hernia. Gallbladder and bile ducts: Status post cholecystectomy. Pancreas: Unremarkable. No mass. No ductal dilation. Spleen: Normal. No splenomegaly. Adrenal glands: Normal. No mass. Kidneys and ureters: Normal. No mass. Stomach and bowel: Colonic diverticulosis without diverticulitis. Appendix: No evidence of appendicitis. Urinary bladder: Unremarkable. No mass. Reproductive: Unremarkable as visualized. Intraperitoneal space: Unremarkable. No free air. No significant fluid collection. Lymph nodes: No lymphadenopathy. Bones/joints: Moderate degenerative changes of the spine. Soft tissues: Status post left ventral hernia repair. Multifocal right ventral abdominal wall hernias containing nondilated loops of bowel. Moderate swelling in the bilateral calves. CT/CT angio abd aorta runof [id number] IMPRESSION: 1. No evidence of IVC filter migration. Slight tilting of the filter with penetration of the struts. This study is not timed for the evaluation of venous thrombus. 2. Three-vessel runoff to the bilateral ankles without high-grade stenosis or thrombus.
[2023-07-18] MEDS: iohexol 350 mg/mL 500 mL Btl (per mL) IV (12:35)
== END 2023-07-18 11:29 | disposition home or self-care (01) ==
LOC: RAD 11:30
PROVIDERS: PCP Registered Nurse; Visit Provider Nurse Practitioner Family
DX: I73.9 Peripheral vascular disease, unspecified; R20.0 Anesthesia of skin; Z95.828 Presence of other vascular implants and grafts; Z98.84 Bariatric surgery status; Z98.890 Other specified postprocedural states
CPT/HCPCS: 75635; Q9967

== ENCOUNTER → 2023-07-20 08:51 | Outpatient (BNVA) | payer MEDICARE, OTHER, SELFPAY | PROVIDERS: PCP Registered Nurse; Visit Provider Nurse Practitioner Women's Health | DX: R93.89 Abnormal findings on diagnostic imaging of other specified body structures (principal) | CPT/HCPCS: 76830 ==

== ENCOUNTER 2023-08-10 09:37 | Outpatient (CLI) | payer MEDICARE, OTHER, SELFPAY ==
--- NOTE | 2023-08-10 | ECG_ITS ---
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 Interpretive Statements NAME OF STUDY: LEXISCAN SESTAMIBI STRESS TEST INDICATION: [WORSENING FATIGUE/MOD CAD/MARIA, ] Procedure: At the baseline, the blood pressure was 143/90 mmHg with a heart rate of 76 bpm. The electrocardiogram showed normal sinus rhythm, normal axis with normal ST and T's. The Lexiscan was infused over a period of 20 seconds. A total of 0.4 mg of Lexiscan was infused. The stress phase was continued for a total of 5 minutes. Heart rate was at the end of stress phase was 82 bpm and a blood pressure of 141/82 mmHg. The EKG at the peak infusion revealed normal sinus rhythm with no significant ST-T wave changes. Sestamibi was injected 20 seconds after the Lexiscan infusion. Blood pressure at the end of recovery phase was 143/83 mmHg with a heart rate of 82 bpm. Conclusion: 1. Normal EKG response to Lexiscan infusion 2. No Lexiscan induced chest pain or cardiac arrhythmia. 3. Normal blood pressure and heart rate response. 4. Sestamibi/sestamibi perfusion scan pending; see separate report. Electronically Signed On 08-24-2023 10:38:49 CDT by Ismael Rand M.D. [id number]
[2023-08-10 10:27] VITALS: BMI 51.3
--- NOTE | 2023-08-10 10:27 | NMCV_ITS ---
NM agustin perf SPECT r/s* [id number] Diamond Cochran Age: 73 Gender: F : 1950 Exam Date: 08/10/2023 10:50 Ordering Phys: Felicia Mohan Technologist: EMRE Marin Exam Location: [facility] Indications: ACUTE MYOCARDIAL INFARCTION STRESS TEST Please [facility] IMAGE PROTOCOL Rest/Stress 1 Lexiscan Day Radiopharmaceutical Dose (mCi) Administration Site Administered by Rest: Tc-99m 10.9 IV EMRE Cox Sestamibi Stress:Tc-99m 33.0 IV EMRE Cox Sestamibi Rest: 10-Aug-2023 60 Discovery 630 Stress: 10-Aug-2023 30 Discovery 630 0.4mg Lexiscan. Supine position only as patient was unable to lay prone. SPECT RESULTS Technical Quality: Excellent Raw Data Analysis: Normal Image Corrections: No attenuation or motion correction applied Summed Stress Score: 2 Summed Rest Score: 0 Summed Difference Score: 2 PERFUSION FINDINGS There is small sized reversible perfusion defect noted in apical lateral wall. This is consistent with small area of ischemia in left circumflex artery territory. FUNCTIONAL RESULTS (calculated via Gated SPECT) Stress Image LV EF (%): 74 Stress EDV (mL):78 TID: 1 Stress ESV (mL):20 FUNCTIONAL FINDINGS: There is normal left ventricular systolic function. IMPRESSIONS 1. Small area of ischemia in the left circumflex artery territory. 2. LV systolic function is normal Ismael Rand MD (Electronically Signed) Final Date: 13 August 2023 11:24 S
[2023-08-10] MEDS: regadenoson 0.4 Mg/5 ml Syringe 0.400000000000000022 MG IVP (11:32)
[2023-08-10 11:48] VITALS: BP 141/82; PULSE 81
== END 2023-08-10 09:38 | disposition home or self-care (01) ==
LOC: CDL 09:38
PROVIDERS: PCP Registered Nurse; Visit Provider Nurse Practitioner Family
DX: R06.00 Dyspnea, unspecified (principal); R53.83 Other fatigue; I25.10 Atherosclerotic heart disease of native coronary artery without angina pectoris
CPT/HCPCS: 36415; 78452; 93017; 96374; A9500; J2785

== ENCOUNTER 2023-08-31 14:11 | Outpatient (CLI) | payer MEDICARE, OTHER, SELFPAY ==
--- NOTE | 2023-08-31 14:16 | XR_ITS ---
WS: [id number] Chest 2 views, 08/31/2023 Clinical Data: R05.8 - Other specified cough Comparison: None. Findings: No nodules, masses or effusions are seen. The heart is normal. There is minimal patchy opac ity in the retrocardiac region which could represent atelectasis and/or minimal pneumonia. The pulmon joan vascularity is not increased. No pneumonia or pneumothorax is seen. The aortic arch and descendin g thoracic aorta show calcification and tortuosity. There are clips in the right upper quadrant from prior surgery. There are also left upper quadrant surgical clips. Impression: 1. Retrocardiac opacity which could represent minimal atelectasis and/or pneumonia. 2. Atherosclerosis.
== END 2023-08-31 14:12 | disposition home or self-care (01) ==
LOC: RAD 14:13
PROVIDERS: PCP Registered Nurse; Visit Provider Registered Nurse
DX: J32.9 Chronic sinusitis, unspecified (principal); R05.8 Other specified cough; R93.89 Abnormal findings on diagnostic imaging of other specified body structures; I10 Essential (primary) hypertension; E55.9 Vitamin D deficiency, unspecified
CPT/HCPCS: 71046; 80053; 80061; 81000; 82306; 82785; 85025; 86003

== ENCOUNTER → 2023-09-05 11:15 | Outpatient (BNVA) | payer MEDICARE, OTHER, SELFPAY | PROVIDERS: PCP Registered Nurse; Visit Provider Registered Nurse | DX: J32.9 Chronic sinusitis, unspecified (principal) | CPT/HCPCS: 82785; 86003 ==

== ENCOUNTER → 2023-09-14 11:06 | Outpatient (BNVA) | payer MEDICARE, OTHER, SELFPAY | PROVIDERS: PCP Registered Nurse; Visit Provider Nurse Practitioner Family | DX: J18.9 Pneumonia, unspecified organism (principal); R91.8 Other nonspecific abnormal finding of lung field | CPT/HCPCS: 71046; 99214 ==

== ENCOUNTER → 2023-09-15 09:25 | Outpatient (BNVA) | payer MEDICARE, OTHER, SELFPAY | PROVIDERS: PCP Registered Nurse; Visit Provider Registered Nurse | DX: J32.9 Chronic sinusitis, unspecified (principal); R06.02 Shortness of breath; J98.4 Other disorders of lung | CPT/HCPCS: 85025; 87486; 87581; 87633 ==

== ENCOUNTER → 2023-09-28 13:30 | Outpatient (BNVA) | payer MEDICARE, OTHER, SELFPAY | PROVIDERS: PCP Registered Nurse; Visit Provider Internal Medicine | DX: I10 Essential (primary) hypertension (principal); Z95.828 Presence of other vascular implants and grafts; Z86.718 Personal history of other venous thrombosis and embolism; K56.609 Unspecified intestinal obstruction, unspecified as to partial versus complete obstruction; I83.813 Varicose veins of bilateral lower extremities with pain; I25.10 Atherosclerotic heart disease of native coronary artery without angina pectoris; Z79.01 Long term (current) use of anticoagulants; Z87.891 Personal history of nicotine dependence | CPT/HCPCS: 99214 ==

== ENCOUNTER → 2023-10-03 10:16 | Outpatient (BNVA) | payer MEDICARE, OTHER, SELFPAY | PROVIDERS: PCP Registered Nurse; Visit Provider Registered Nurse | DX: N39.0 Urinary tract infection, site not specified (principal) | CPT/HCPCS: 81000 ==

== ENCOUNTER 2023-10-12 11:00 | Outpatient (CLI) | payer MEDICARE, OTHER, SELFPAY | END 2023-10-12 11:01 | disposition home or self-care (01) | LOC: RT 11:00 | PROVIDERS: PCP Registered Nurse; Visit Provider Registered Nurse | DX: R06.02 Shortness of breath (principal); J98.4 Other disorders of lung | CPT/HCPCS: 94010 ==

== ENCOUNTER → 2023-11-17 08:19 | Outpatient (BNVA) | payer MEDICARE, OTHER, SELFPAY | PROVIDERS: PCP Registered Nurse; Visit Provider Podiatrist Foot & Ankle Surgery | DX: M76.62 Achilles tendinitis, left leg; M77.52 Other enthesopathy of left foot and ankle | CPT/HCPCS: 99203 ==

== ENCOUNTER 2023-11-30 06:00 | Outpatient (RCR) | payer MEDICARE, OTHER, SELFPAY | END 2023-12-10 23:59 | disposition home or self-care (01) | LOC: WPT 06:00 | PROVIDERS: PCP Registered Nurse; Visit Provider Registered Nurse | DX: M76.62 Achilles tendinitis, left leg (principal) | CPT/HCPCS: 97110; 97140; 97162; 97530 ==

== ENCOUNTER 2023-12-11 06:00 | Outpatient (RCR) | payer MEDICARE, OTHER, SELFPAY | END 2024-01-10 23:59 | disposition home or self-care (01) | LOC: WPT 06:00 | PROVIDERS: PCP Registered Nurse; Visit Provider Registered Nurse | DX: M76.62 Achilles tendinitis, left leg (principal) | CPT/HCPCS: 97110; 97112; 97140; 97530 ==

== ENCOUNTER → 2023-12-25 09:11 | Outpatient (BNVA) | payer MEDICARE, OTHER, SELFPAY | PROVIDERS: PCP Registered Nurse; Visit Provider Podiatrist Foot & Ankle Surgery | DX: M76.62 Achilles tendinitis, left leg; M77.52 Other enthesopathy of left foot and ankle | CPT/HCPCS: 99213 ==

== ENCOUNTER → 2024-01-03 12:40 | Outpatient (BNVA) | payer MEDICARE, OTHER, SELFPAY | PROVIDERS: PCP Registered Nurse; Visit Provider Internal Medicine | DX: I10 Essential (primary) hypertension (principal); Z95.828 Presence of other vascular implants and grafts; Z86.718 Personal history of other venous thrombosis and embolism; K56.609 Unspecified intestinal obstruction, unspecified as to partial versus complete obstruction; I83.813 Varicose veins of bilateral lower extremities with pain; I25.10 Atherosclerotic heart disease of native coronary artery without angina pectoris; Z79.01 Long term (current) use of anticoagulants | CPT/HCPCS: 99214 ==

== ENCOUNTER 2024-01-11 06:00 | Outpatient (RCR) | payer MEDICARE, OTHER, SELFPAY | END 2024-02-10 23:59 | disposition home or self-care (01) | LOC: WPT 06:00 | PROVIDERS: PCP Registered Nurse; Visit Provider Registered Nurse | DX: M67.88 Other specified disorders of synovium and tendon, other site (principal) | CPT/HCPCS: 97110; 97112; 97140; 97530 ==

== ENCOUNTER 2024-02-11 06:00 | Outpatient (RCR) | payer MEDICARE, OTHER, SELFPAY | END 2024-03-11 23:59 | disposition home or self-care (01) | LOC: WPT 06:00 | PROVIDERS: PCP Registered Nurse; Visit Provider Registered Nurse | DX: M76.62 Achilles tendinitis, left leg (principal) | CPT/HCPCS: 97110; 97112; 97530 ==

== ENCOUNTER → 2024-02-29 08:30 | Outpatient (BNVA) | payer MEDICARE, OTHER, SELFPAY | PROVIDERS: PCP Registered Nurse; Visit Provider Internal Medicine | DX: I10 Essential (primary) hypertension (principal); Z95.828 Presence of other vascular implants and grafts; Z86.718 Personal history of other venous thrombosis and embolism; K56.609 Unspecified intestinal obstruction, unspecified as to partial versus complete obstruction; I83.813 Varicose veins of bilateral lower extremities with pain; I25.10 Atherosclerotic heart disease of native coronary artery without angina pectoris; Z87.891 Personal history of nicotine dependence | CPT/HCPCS: 99214 ==

== ENCOUNTER 2024-03-12 06:00 | Outpatient (RCR) | payer MEDICARE, OTHER, SELFPAY | END 2024-04-11 23:59 | disposition home or self-care (01) | LOC: WPT 06:00 | PROVIDERS: PCP Registered Nurse; Visit Provider Registered Nurse | DX: M76.62 Achilles tendinitis, left leg (principal) | CPT/HCPCS: 97110; 97112; 97530 ==

== ENCOUNTER → 2024-04-10 09:06 | Outpatient (BNVA) | payer MEDICARE, OTHER, SELFPAY | PROVIDERS: PCP Registered Nurse; Visit Provider Registered Nurse | DX: R42 Dizziness and giddiness (principal); E53.8 Deficiency of other specified B group vitamins; R51.9 Headache, unspecified; I10 Essential (primary) hypertension | CPT/HCPCS: 80053; 82607; 84443; 85025 ==

== ENCOUNTER 2024-04-12 06:00 | Outpatient (RCR) | payer MEDICARE, OTHER, SELFPAY | END 2024-05-11 23:59 | disposition home or self-care (01) | LOC: WPT 06:00 | PROVIDERS: PCP Registered Nurse; Visit Provider Registered Nurse | DX: M67.88 Other specified disorders of synovium and tendon, other site (principal) | CPT/HCPCS: 97110; 97112; 97530 ==

== ENCOUNTER 2024-04-30 14:50 | Outpatient (CLI) | payer MEDICARE, OTHER, SELFPAY ==
--- NOTE | 2024-04-30 15:00 | CT_ITS ---
WS: [id number] CT HEAD NONCONTRAST HISTORY: R51.9 - Headache, unspecified TECHNIQUE: Contiguous axial imaging performed through the brain. Bone and soft tissue windows. Sagitt al and coronal reformats reviewed. All CT scans at [facility] use at least one of these dose optimization techniques: automated exposure control; mA and/or kV adjustment per patient size (includ es targeted exams where dose is matched to clinical indication); or iterative reconstruction. DLP: 1104.98 mGy.cm COMPARISON: 10/29/2017 No acute intracranial hemorrhage, midline shift or mass effect. Moderate bifrontal lobe atrophy and mild small vessel ischemic disease. No acute infarct. No progress ion of disease since 10/29/2017. Mild atrophy of the cerebellum. Ventricles: Normal size with no hydrocephalus. No inferior displacement of the cerebellar tonsils. Paranasal sinuses: As visualized are clear. Mastoid air cells: Well pneumatized. Calvarium and scalp: Skull is intact with no soft tissue edema or swelling. CT/CT head wo con* [id number] IMPRESSION: 1. No acute intracranial hemorrhage or edema. 2. Bifrontal lobe atrophy as before. No significant progression of small vesse l disease or prior infarct. 3. Posterior calvarium is negative.
== END 2024-04-30 14:51 | disposition home or self-care (01) ==
LOC: RAD 14:51
PROVIDERS: PCP Registered Nurse; Visit Provider Registered Nurse
DX: G31.09 Other frontotemporal neurocognitive disorder (principal); J32.9 Chronic sinusitis, unspecified; R51.9 Headache, unspecified; R42 Dizziness and giddiness
CPT/HCPCS: 70450

== ENCOUNTER 2024-05-09 15:04 | Inpatient (IN) | payer MEDICARE, OTHER, SELFPAY ==
[2024-05-09] VITALS (8 sets, daily range): BP systolic 104–153; BP diastolic 82–105; PULSE 71–80; RESP 16–18; TEMP 36.7; O2SAT 93–97
--- NOTE | 2024-05-09 15:27 | CTR_ITS ---
PROCEDURE INFORMATION: Exam: CT Abdomen And Pelvis Without Contrast Exam date and time: 05/09/2024 3:45 PM Age: 73 years old Clinical indication: Abdominal pain; Generalized; Prior surgery; Surgery date: 6+ months; Surgery type: Colon TECHNIQUE: Imaging protocol: Computed tomography of the abdomen and pelvis without contrast. Radiation optimization: All CT scans at this facility use at least one of these dose optimization techniques: automated exposure control; mA and/or kV adjustment per patient size (includes targeted exams where dose is matched to clinical indication); or iterative reconstruction. COMPARISON: CT angio abd aorta runof [id number] 07/18/2023 12:20 PM RADIATION DOSE METRICS: Total DLP (mGy-cm): 1118.18 FINDINGS: Lungs: Lung bases are clear. No pleural effusion. Liver: Normal. No mass. Gallbladder and biliary ducts: The gallbladder has been resected. Pancreas: Normal. No ductal dilation. Spleen: Normal. No splenomegaly. Adrenal glands: Normal. No mass. Kidneys and ureters: Normal. No hydronephrosis. Stomach and bowel: There are multiple loops of moderately distended small bowel. The colon is nondistended.Multiple diverticula involve the sigmoid colon. There is no sign of diverticulitis. Appendix: No evidence of appendicitis. Intraperitoneal space: Unremarkable. No free air. No significant fluid collection. Vasculature: An IVC filter is noted in good position. Lymph nodes: Unremarkable. No enlarged lymph nodes. Urinary bladder: Unremarkable as visualized. Reproductive: Unremarkable as visualized. Bones/joints: Unremarkable. No acute fracture. Soft tissues: There is a very large hernia involving the anterior abdominal wall centrally. The hernia contains multiple loops of large and small bowel. A smaller hernia noted more superiorly and contains a segment of transverse colon. CT/CT abdomen pelvis wo con [id number] IMPRESSION: Diffuse small bowel distension which may indicate distal small bowel obstruction. This could be related to incarceration within 1 of the hernias. COMMENTS: For patients with an IVC filter, recommend assessment for a management plan for the patient's IVC filter. If there is no established management plan, recommend referral to an interventional clinician on a nonemergent basis for evaluation.
--- NOTE | 2024-05-09 15:27 | W.ED.ABDPA2 ---
HPI - Abdominal Pain General: Chief Complaint: Abdominal Pain Stated Complaint: abd pain Time Seen by Provider: 05/09/24 15:08 History of Present Illness: 73-year-old female presents emergency room complaining of right-sided abdominal pain began yesterday she has had persistent nausea vomiting no hematemesis or coffee-ground emesis she has no problems with multiple bowel obstructions in the past she states it feels like that again she has been bloated. Bowel obstructions have been significant after he required surgical reduction resulting in resection of the bowel and at one time she had a colostomy for a period of time. She is not in any hematochezia or melena. 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 but no PEs according to her Associated Symptoms: Reports nausea and vomiting; Denies chills, diarrhea, dysuria, fever(s), hematochezia, hematemesis and melena Related Data Home Medications Medication Instructions Recorded Confirmed ibuprofen 200 mg tablet 200 mg PO Q6H PRN Pain 06/27/22 05/09/24 cetirizine 10 mg tablet (Zyrtec) 10 mg PO DAILY PRN allergies 10/07/22 05/09/24 multivitamin with minerals 1 tab PO DAILY 10/07/22 05/09/24 (Hair,Skin and Nails tablet) fluticasone propionate 50 1 spray intranasal DAILY PRN 12/26/22 05/09/24 mcg/actuation nasal allergies spray,suspension (Flonase Allergy Relief) Vit B-12 5,000 mcg PO DIRECTED 04/22/24 05/09/24 docusate sodium 100 mg capsule 200 mg PO BID 04/22/24 05/09/24 (Colace) potassium 99 mg tablet 198 mg PO DAILY 04/22/24 05/09/24 Previous Rx's Medication Instructions Recorded fluticasone propionate 230 2 puff inhalation BID 30 days #12 08/31/23 mcg-salmeterol 21 mcg/actuation grams HFA inhaler (Advair HFA) albuterol sulfate 2.5 mg/3 mL 2.5 mg (3 mL) inhalation Q4H PRN 09/04/23 (0.083 %) solution for nebulization bronchospasm 10 days #180 mL nebulizer and supplies #1 ea 09/04/23 metoprolol succinate 25 mg 25 mg PO DAILY #90 tabs 09/28/23 tablet,extended release 24 hr (Toprol XL) epinephrine 0.3 mg/0.3 mL 0.3 mg (0.3 mL) IM Q10M PRN 10/03/23 injection, auto-injector anaphylaxis #2 ea hydrochlorothiazide 50 mg tablet See Rx Instructions .Route 10/30/23 .COMPLEX #90 tabs furosemide 20 mg tablet See Rx Instructions .Route 04/01/24 .COMPLEX #90 tabs warfarin 5 mg tablet 5 mg PO DAILY #360 tabs 04/05/24 Allergies Allergy/AdvReac Type Severity Reaction Status Date / Time bee venom protein (honey bee) Allergy ALGY-Anaphy Verified 05/09/24 20:37 laxis ciprofloxacin Allergy Unknown Verified 05/10/24 01:58 egg Allergy Unknown Verified 05/09/24 20:37 hydrocodone Allergy Unknown Verified 05/09/24 20:37 milk Allergy Unknown Verified 05/09/24 20:37 procaine [From Novocain] Allergy Unknown Verified 05/09/24 20:37 Review of Systems Const: Denies: fever(s) or chills Card: Denies: chest pain Resp: Denies: dyspnea GI: Reports: abdominal pain, nausea and vomiting; Denies: hematemesis, diarrhea, hematochezia or melena : Denies: dysuria, urinary frequency or urinary urgency Musc: Denies: neck pain or back pain Skin/Breast: Denies: rash PFSH ED PFSH: Medical History Abdominal hernia Coronary artery disease Hypercholesterolemia Allergic to bees Varicose veins of both lower extremities Venous stasis of both lower extremities Hx of deep venous thrombosis Hypertension Cubital tunnel syndrome on right CMC (carpometacarpal joint) sprains CMC arthritis, thumb, degenerative Encounter for monitoring Coumadin therapy Chronic deep vein thrombosis of left lower extremity Presence of IVC filter Surgical History Hx of cholecystectomy Hx of inguinal hernia repair Hx of exploratory laparotomy Hx of gastric bypass History of colon resection Family History Grandmother Cancer breast cancer(paternal) uterus(maternal) Mother Cancer throat Brother Heart disease Cancer Father Heart disease Denies family history of Diabetes Chronic kidney disease (CKD) Lung disease Social History Smoking and tobacco/nicotine status: former use of tobacco/nicotine Alcohol intake: current Alcohol intake frequency: holidays/special occasions only Substance/Drug Use: never Adopted: No Caregiver/support person: No Lives independently: No Household members: spouse Marital status: service: No Current occupational status: retired Sexually active: Yes Do you think of yourself as: Straight/Heterosexual Current gender identity: Female Physical Exam Const: COMMON NORMALS: no acute distress GENERAL APPEARANCE: cooperative and comfortable ORIENTATION/CONSCIOUSNESS: Yes awake, Yes oriented to person, Yes oriented to place and Yes oriented to time HENMT: COMMON NORMALS: normocephalic, atraumatic and hearing grossly normal bilaterally HEAD & SCALP: normocephalic and atraumatic Resp: COMMON NORMALS: normal respiratory effort, No retractions, No use of accessory muscles and clear to auscultation bilaterally AUSCULTATION: clear to auscultation bilaterally Cardio: COMMON NORMALS: regular rate, regular rhythm and No murmurs present (Cardio) RATE: regular rate RHYTHM: regular rhythm GI: COMMON NORMALS: No hepatosplenomegaly present INSPECTION: Yes abdominal distension AUSCULTATION: Yes Absent bowel sounds PALPATION: Yes Tenderness to palpation present (GI) (Diffuse), No Guarding due to palpation present (GI) and Yes No hepatosplenomegaly present Extremity: COMMON NORMALS: normal to inspection, capillary refill normal, no clubbing, cyanosis or edema, no calf tenderness and no pedal edema Neuro: SENSORIUM/ORIENTATION: Yes oriented to person, Yes oriented to place and Yes oriented to time Skin: COMMON NORMALS: no rashes or lesions noted GENERAL SKIN EXAM: no rashes or lesions noted Course Vital Signs: Vital signs: Vital Signs Temperature 97.8 F 05/10/24 15:26 Pulse Rate 71 05/10/24 15:26 Respiratory Rate 16 05/10/24 15:43 Blood Pressure 149/60 05/10/24 15:26 Pulse Oximetry 94 05/10/24 15:26 Oxygen Delivery Me thod Room Air 05/10/24 15:26 Oxygen Flow Rate 2 05/09/24 19:24 MDM - Abdominal Pain Medical Decision Making CT shows patient has a bowel obstruction multiple hernias in the abdominal wall nothing this and strangulated there. Discussed with surgery NG tube placed with significant difficulty. Will admit the patient for conservative care. Admit to hospitalist. Medical Records I reviewed the patient's medical records. Lab Data I reviewed the patient's lab results. 05/10/24 04:20 05/10/24 04:20 Labs/Radiology: Radiology Impressions Abdomen/Pelvis CT 05/09/24 15:27 IMPRESSION: Diffuse small bowel distension which may indicate distal small bowel obstruction. This could be related to incarceration within 1 of the hernias. COMMENTS: For patients with an IVC filter, recommend assessment for a management plan for the patient's IVC filter. If there is no established management plan, recommend referral to an interventional clinician on a nonemergent basis for evaluation. Abdomen X-Ray 05/09/24 18:10 IMPRESSION: Nasogastric tube in satisfactory position. COMMENTS: For patients with an IVC filter, recommend assessment for a management plan for the patient's IVC filter. If there is no established management plan, recommend referral to an interventional clinician on a nonemergent basis for evaluation. Laboratory Results WBC 7.02 10^3/uL (3.29-11.43) 05/09/24 15:42 RBC 5.43 10^6/uL (3.85-5.65) 05/09/24 15:42 Hgb 15.80 g/dL (11.27-16.99) 05/09/24 15:42 Hct 47.7 % (36-47) H 05/09/24 15:42 MCV 87.8 fl (85-98) 05/09/24 15:42 MCH 29.1 pg (27-33) 05/09/24 15:42 MCHC 33.1 g/dL (30-55) 05/09/24 15:42 RDW 13.9 % (12.1-15.1) 05/09/24 15:42 Plt Count 337 10^3/cmm (157-399) 05/09/24 15:42 MPV 8.8 fL (7.4-10.4) 05/09/24 15:42 Neut % (Auto) 81.6 % 05/09/24 15:42 Lymph % (Auto) 11.5 % 05/09/24 15:42 [place] % (Auto) 3.1 % 05/09/24 15:42 Eos % (Auto) 3.4 % 05/09/24 15:42 Baso % (Auto) 0.3 % 05/09/24 15:42 Neut # (Auto) 5.72 10^3/uL (1.8-7.7) 05/09/24 15:42 Lymph # (Auto) 0.8 10^3/uL (0.8-4.8) 05/09/24 15:42 [place] # (Auto) 0.2 10^3/uL (0.2-0.9) 05/09/24 15:42 Eos # (Auto) 0.2 10^3/uL (0.0-0.8) 05/09/24 15:42 Baso # (Auto) 0.0 10^3/uL (0.0-0.1) 05/09/24 15:42 Nucleated RBC % (auto) 0 % 05/09/24 15:42 Nucleated RBCs # 0.0 /100WBC 05/09/24 15:42 PT 26.00 SECONDS (12.1-14.9) H 05/09/24 15:42 INR 2.28 (0.8-1.2) H 05/09/24 15:42 Sodium 135 mmol/L (136-145) L 05/09/24 15:42 Potassium 3.8 mmol/L (3.5-5.1) 05/09/24 15:42 Chloride 96 mmol/L (98-107) L 05/09/24 15:42 Carbon Dioxide 27 mmol/L (22-29) 05/09/24 15:42 Anion Gap 15.8 (5-19) 05/09/24 15:42 BUN 16 mg/dL (8-23) 05/09/24 15:42 Creatinine 0.6 mg/dL (0.5-0.9) 05/09/24 15:42 GFR Calculation Not Reportable 05/09/24 15:42 Glucose 122 mg/dL (65-115) H 05/09/24 15:42 Calculated Osmolality 282 mOsm/kg (285-295) L 05/09/24 15:42 Lactic Acid 1.7 mmol/L (0.5-2.2) 05/09/24 15:42 Calcium 10.0 mg/dL (8.5-10.5) 05/09/24 15:42 Total Bilirubin 0.8 mg/dL (0.15-1.2) 05/09/24 15:42 AST 23 U/L (0-32) 05/09/24 15:42 ALT 20 U/L (0-33) 05/09/24 15:42 Alkaline Phosphatase 114 U/L (35-105) H 05/09/24 15:42 Total Protein 7.5 g/dL (6.6-8.7) 05/09/24 15:42 Albumin 4.1 g/dL (3.5-5.2) 05/09/24 15:42 Globulin 3.4 g/dL (1.3-4.6) 05/09/24 15:42 Urine Color Dark yellow (Yellow) A 05/09/24 16:22 Urine Appearance Turbid (CLEAR) A 05/09/24 16:22 Urine pH 6.0 (5-7) 05/09/24 16:22 Ur Specific Mobile 1.025 (1.005-1.030) 05/09/24 16:22 Urine Protein 1+ (Negative) A 05/09/24 16:22 Urine Glucose (UA) Negative (Normal) 05/09/24 16:22 Urine Ketones Trace (Negative) 05/09/24 16:22 Urine Blood 2+ (Negative) A 05/09/24 16:22 Urine Nitrate Negative (Negative) 05/09/24 16:22 Urine Bilirubin Negative (Negative) 05/09/24 16:22 Urine Urobilinogen 1.0 mg/dL (Negative) 05/09/24 16:22 Ur Leukocyte Esterase 1+ (Negative) A 05/09/24 16:22 Urine RBC 21-50 /hpf (0-2) H 05/09/24 16:22 Urine WBC 21-50 /hpf (0-5) H 05/09/24 16:22 Ur Squamous Epith Cells 51-100 /hpf (0-5) 05/09/24 16:22 Amorphous Sediment Not Reportable 05/09/24 16:22 Urine Bacteria 3+ /hpf (NONE) H 05/09/24 16:22 Hyaline Casts 7.42 /lpf 05/09/24 16:22 All radiology interpretation(s) finalized by discharge Discharge Plan Discharge Patient Disposition: Admitted As Inpatient Admit Provider: Arsh Colmenares Clinical Impression: Small bowel obstruction due to adhesions, Hernia of anterior abdominal wall Condition: Stable Coding Level of Care Code ED Lumber Straightener for Marlo Diaz
[2024-05-09 15:49] LABS: Basophils % 0.3 %; Eosinophils # 0.2 10^3/uL (0.0-0.8); Eosinophils % 3.4 %; Hematocrit 47.7 % (36-47); Lymphocytes # 0.8 10^3/uL (0.8-4.8); Lymphocytes % 11.5 %; Mean Corpuscular HGB Conc 33.1 g/dL (30-55); Mean Corpuscular Hemoglobin 29.1 pg (27-33); Mean Corpuscular Volume 87.8 fl (85-98); Mean Platelet Volume 8.8 fL (7.4-10.4); Monocytes # 0.2 10^3/uL (0.2-0.9); Monocytes % 3.1 %; Neutrophils # 5.72 10^3/uL (1.8-7.7); Neutrophils % 81.6 %; Nucleated Red Blood Cells % 0 %; Platelet Count 337 10^3/cmm (157-399); Red Blood Count 5.43 10^6/uL (3.85-5.65); Red Cell Distribution Width 13.9 % (12.1-15.1); White Blood Count 7.02 10^3/uL (3.29-11.43)
[2024-05-09 16:01] LABS: INR 2.28 (0.8-1.2)
[2024-05-09 16:08] LABS: Alanine Aminotransferase 20 U/L (0-33); Albumin Level 4.1 g/dL (3.5-5.2); Alkaline Phosphatase 114 U/L (35-105); Anion Gap 15.8 (5-19); Aspartate Amino Transferase 23 U/L (0-32); Blood Urea Nitrogen 16 mg/dL (8-23); Carbon Dioxide 27 mmol/L (22-29); Chloride 96 mmol/L (98-107); Creatinine Clr Calc Pharmacy 82.3457; Globulin 3.4 g/dL (1.3-4.6); Glucose 122 mg/dL (65-115); Lactic Sepsis W/Reflex 1.7 mmol/L (0.5-2.2); Osmolality Calculated 282 mOsm/kg (285-295); Potassium 3.8 mmol/L (3.5-5.1); Sodium 135 mmol/L (136-145); Total Bilirubin 0.8 mg/dL (0.15-1.2); Total Protein 7.5 g/dL (6.6-8.7)
[2024-05-09 16:28] LABS: Bilirubin Urine Negative (Negative); Blood Urine 2+ (Negative); Glucose Urine UA Negative (Normal); Ketones Urine Trace (Negative); Leukocyte Esterase Urine 1+ (Negative); Nitrate Urine Negative (Negative); Protein Urine 1+ (Negative); Specific Gravity, Urine 1.025 (1.005-1.030); Urine Appearance Turbid (CLEAR); Urine Color Dark Yellow (Yellow)
[2024-05-09 16:33] LABS: Add Urine Microscopic? YES; Bacteria Urine 3+ /hpf; Hyaline Casts Urine 7.42 /lpf; RBC Urine 21-50 /hpf (0-2); Squamous Epithelial Cell Urine 51-100 /hpf (0-5); WBC Urine 21-50 /hpf (0-5)
[2024-05-09] MEDS: LORazepam 2 mg/mL INJ 1 mL IVP (16:51)
[2024-05-09] MEDS: sodium chloride 0.9% 1,000 ML 999 ML IV (16:56)
[2024-05-09] MEDS: cetacaine Spray 5 gm Can 2 SPRAY TOPICAL (16:58)
[2024-05-09 17:03] LABS: UA Slide Review UA Slide Review Perf
[2024-05-09 17:04] LABS: Add Urine Culture? Yes
[2024-05-09] MEDS: morphine 4 mg/mL SDV 1 mL IVP (17:46)
--- NOTE | 2024-05-09 17:47 | P.HP_ITS ---
Providers/Chief Complaint 2 Primary Care Provider: EUGENE Thompson Chief Complaint: abd pain History of Present Illness Diamond Cochran is a 73 year old female history of incarcerated ventral hernia status post multiple surgery, history of PE, hypertension obesity, history of DVT status post IVC filter placement, history of hypercoagulability on Coumadin, history of CAD who presents [facility] for abdominal pain, nausea, vomiting. Currently patient is alert oriented x 3, following all commands, complains of feeling nauseous, abdominal pain, she has not had a bowel movement in 24 hours continues to have nausea, vomiting, poor appetite. Patient tells me that she has had a history of bowel obstructions, requiring surgery in the past, her last significant hospitalization, at [facility] for her bowel obstruction, she has been told that there is no more surgical interventions they can offer for her bowel obstruction at the present time unless she has a bowel rupture. Review of Systems 2 Const: Denies: fever(s) or chills Card: Denies: chest pain GI: Reports: abdominal pain, nausea and vomiting; Denies: diarrhea Medications/Allergies Home Medications Medication Instructions Recorded Confirmed Last Taken Type ibuprofen 200 mg tablet 200 mg PO Q6H PRN Pain 06/27/22 04/22/24 Unknown History cetirizine 10 mg tablet (Zyrtec) 10 mg PO DAILY 10/07/22 04/22/24 10/09/22 07:00 History multivitamin with minerals 2 tab PO DAILY 10/07/22 04/22/24 10/09/22 07:00 History (Hair,Skin and Nails tablet) fluticasone propionate 50 1 spray intranasal DAILY 12/26/22 04/22/24 Unknown History mcg/actuation nasal spray,suspension (Flonase Allergy Relief) fluticasone propionate 230 2 puff inhalation BID 30 days #12 08/31/23 04/22/24 Unknown Rx mcg-salmeterol 21 mcg/actuation grams HFA inhaler (Advair HFA) albuterol sulfate 2.5 mg/3 mL 2.5 mg (3 mL) inhalation Q4H PRN 09/04/23 04/22/24 Unknown Rx (0.083 %) solution for nebulization bronchospasm 10 days #180 mL nebulizer and supplies #1 ea 09/04/23 12/25/23 Unknown Rx metoprolol succinate 25 mg 25 mg PO DAILY #90 tabs 09/28/23 04/22/24 Unknown Rx tablet,extended release 24 hr (Toprol XL) epinephrine 0.3 mg/0.3 mL 0.3 mg (0.3 mL) IM Q10M PRN 10/03/23 04/22/24 Unknown Rx injection, auto-injector anaphylaxis #2 ea hydrochlorothiazide 50 mg tablet See Rx Instructions .Route 10/30/23 04/22/24 Unknown Rx .COMPLEX #90 tabs furosemide 20 mg tablet See Rx Instructions .Route 04/01/24 04/22/24 Unknown Rx .COMPLEX #90 tabs warfarin 5 mg tablet 5 mg PO DAILY #360 tabs 04/05/24 04/22/24 Unknown Rx Vit B-12 PO 04/22/24 Unknown History docusate sodium 100 mg capsule 200 mg PO QID 04/22/24 04/22/24 Unknown History (Colace) potassium 99 mg tablet 198 mg PO BID 04/22/24 04/22/24 Unknown History Allergies Allergy/AdvReac Type Severity Reaction Status Date / Time bee venom protein (honey bee) Allergy ALGY-Anaphy Verified 04/22/24 13:38 laxis egg Allergy Unknown Verified 04/22/24 13:38 hydrocodone Allergy Unknown Verified 04/22/24 13:38 milk Allergy Unknown Verified 04/22/24 13:38 procaine [From Novocain] Allergy Unknown Verified 04/22/24 13:38 PFSH Acute 2 PFSH: Medical History Abdominal hernia Coronary artery disease Hypercholesterolemia Allergic to bees Varicose veins of both lower extremities Venous stasis of both lower extremities Hx of deep venous thrombosis Hypertension Cubital tunnel syndrome on right CMC (carpometacarpal joint) sprains CMC arthritis, thumb, degenerative Encounter for monitoring Coumadin therapy Chronic deep vein thrombosis of left lower extremity Presence of IVC filter Surgical History Hx of cholecystectomy Hx of inguinal hernia repair Hx of exploratory laparotomy Hx of gastric bypass History of colon resection Family History Grandmother Cancer breast cancer(paternal) uterus(maternal) Mother Cancer throat Brother Heart disease Cancer Father Heart disease Denies family history of Diabetes Chronic kidney disease (CKD) Lung disease Social History Smoking and tobacco/nicotine status: former use of tobacco/nicotine Alcohol intake: current Alcohol intake frequency: holidays/special occasions only Substance/Drug Use: never Adopted: No Caregiver/support person: No Lives independently: No Household members: spouse Marital status: service: No Current occupational status: retired Sexually active: Yes Do you think of yourself as: Straight/Heterosexual Current gender identity: Female Vitals/I&O/Wt Last Vital Signs Temp 98.1 F 05/09/24 15:07 Pulse 76 05/09/24 15:07 Resp 18 05/09/24 15:07 BP 153/94 05/09/24 15:07 Pulse Ox 95 05/09/24 15:07 O2 Del Method Room Air 05/09/24 15:07 Weight last 48 hrs Weight 126.552 kg Physical Exam 2 Const: COMMON NORMALS: no acute distress and patient oriented x3 Resp: COMMON NORMALS: normal respiratory effort, No retractions, No use of accessory muscles and clear to auscultation bilaterally AUSCULTATION: clear to auscultation bilaterally Cardio: COMMON NORMALS: regular rate, regular rhythm, S1 normal heart sound present and S2 normal heart sound present RATE: regular rate RHYTHM: r egular rhythm HEART SOUNDS: S1 normal heart sound present and S2 normal heart sound present Extremity: COMMON NORMALS: no calf tenderness and no pedal edema Neuro: COMMON NORMALS: patient oriented x3 Psych: COMMON NORMALS: mental status grossly normal Data 05/09/24 15:42 05/09/24 15:42 A&P Assessment and plan (1) SBO (small bowel obstruction): (2) UTI (urinary tract infection): Plan Small bowel obstruction CT/CT abdomen pelvis wo con [id number] IMPRESSION: Diffuse small bowel distension which may indicate distal small bowel obstruction. This could be related to incarceration within 1 of the hernias. Plan -NG tube to be placed -Bowel rest -IV fluids -Zofran, Reglan for nausea -Morphine for pain control -Abdominal exams -General Surgery consulted UTI -Continue Rocephin History of DVT, PE, on Coumadin, will hold for now, has a history of IVC filter Protonix for GI prophylaxis DVT prophylaxis INR 2.28, Coumadin on hold, has IVC filter Attestations 2 Medical Necessity Statement*: Patient requires hospitalization, inpatient, greater than 2 midnights, for bowel obstruction, UTI Diagnoses SBO (small bowel obstruction) K56.609 UTI (urinary tract infection) N39.0
[2024-05-09] MEDS: D5-NS 0.45% + KCL 20 mEq 20 MEQ/1,000 ML BAG 125 MEQ IV ×2 (17:52→21:12)
--- NOTE | 2024-05-09 18:10 | XRR_ITS ---
PROCEDURE INFORMATION: Exam: XR Abdomen Exam date and time: 05/09/2024 6:12 PM Age: 73 years old Clinical indication: Device placement; Gi device; Nasogastric tube; Additional info: Ng placement TECHNIQUE: Imaging protocol: Radiologic exam of the abdomen. Views: Frontal supine view of the abdomen. 1 View. COMPARISON: CT abdomen pelvis wo con [id number] 05/09/2024 3:45 PM FINDINGS: Tubes, catheters and devices: Nasogastric tube with tip and side hole in the stomach. Surgical clips project over the upper abdomen. Gastrointestinal tract: Few dilated loops of bowel in the upper abdomen, better characterized on same-day CT Vasculature: IVC filter Bones/joints: No acute abnormality. XR/XR abdomen 1V* [id number] IMPRESSION: Nasogastric tube in satisfactory position. COMMENTS: For patients with an IVC filter, recommend assessment for a management plan for the patient's IVC filter. If there is no established management plan, recommend referral to an interventional clinician on a nonemergent basis for evaluation.
--- NOTE | 2024-05-09 18:20 | PC.NURSE ---
PT RIPPED BLOOD PRESSURE CUFF OFF WITH HER TEETH STATING I'M NOT WEARING THIS DAMN THING. UNABLE TO ASSESS PT BLOOD PRESSURE.
--- NOTE | 2024-05-09 18:25 | PC.NURSE ---
THIS NURSE ATTEMPTED TO PLACE NG TUBE. PT COMBATIVE AND HITTING THIS NURSE. DR. COCHRAN AWARE.
--- NOTE | 2024-05-09 18:29 | P.CONIM_ITS ---
Providers/Reason For Consult 2 Consulting Physician/Specialty*: General Surgery Reason for Consult*: Bowel obstruction Primary Care Provider: EUGENE Thompson History of Present Illness History of Present Illness Diamond Cochran is a 73 year old female with history of multiple intra-abdominal surgeries, multiple bowel obstructions, hernia repairs and history of chronic anticoagulation she presents with 2 to 3 days of abdominal pain distention nausea and vomit. This is similar to previous episodes of SBO. CAT scan done in the emergency department show evidence of distal small bowel obstruction with transition point in one of her abdominal wall hernias Review of Systems 2 General: Reports: 10 or more systems reviewed and unremarkable except in HPI and below Medications/Allergies Home Medications Medication Instructions Recorded Confirmed Last Taken Type ibuprofen 200 mg tablet 200 mg PO Q6H PRN Pain 06/27/22 04/22/24 Unknown History cetirizine 10 mg tablet (Zyrtec) 10 mg PO DAILY 10/07/22 04/22/24 10/09/22 07:00 History multivitamin with minerals 2 tab PO DAILY 10/07/22 04/22/24 10/09/22 07:00 History (Hair,Skin and Nails tablet) fluticasone propionate 50 1 spray intranasal DAILY 12/26/22 04/22/24 Unknown History mcg/actuation nasal spray,suspension (Flonase Allergy Relief) fluticasone propionate 230 2 puff inhalation BID 30 days #12 08/31/23 04/22/24 Unknown Rx mcg-salmeterol 21 mcg/actuation grams HFA inhaler (Advair HFA) albuterol sulfate 2.5 mg/3 mL 2.5 mg (3 mL) inhalation Q4H PRN 09/04/23 04/22/24 Unknown Rx (0.083 %) solution for nebulization bronchospasm 10 days #180 mL nebulizer and supplies #1 ea 09/04/23 12/25/23 Unknown Rx metoprolol succinate 25 mg 25 mg PO DAILY #90 tabs 09/28/23 04/22/24 Unknown Rx tablet,extended release 24 hr (Toprol XL) epinephrine 0.3 mg/0.3 mL 0.3 mg (0.3 mL) IM Q10M PRN 10/03/23 04/22/24 Unknown Rx injection, auto-injector anaphylaxis #2 ea hydrochlorothiazide 50 mg tablet See Rx Instructions .Route 10/30/23 04/22/24 Unknown Rx .COMPLEX #90 tabs furosemide 20 mg tablet See Rx Instructions .Route 04/01/24 04/22/24 Unknown Rx .COMPLEX #90 tabs warfarin 5 mg tablet 5 mg PO DAILY #360 tabs 04/05/24 04/22/24 Unknown Rx Vit B-12 PO 04/22/24 Unknown History docusate sodium 100 mg capsule 200 mg PO QID 04/22/24 04/22/24 Unknown History (Colace) potassium 99 mg tablet 198 mg PO BID 04/22/24 04/22/24 Unknown History Allergies Allergy/AdvReac Type Severity Reaction Status Date / Time bee venom protein (honey bee) Allergy ALGY-Anaphy Verified 04/22/24 13:38 laxis egg Allergy Unknown Verified 04/22/24 13:38 hydrocodone Allergy Unknown Verified 04/22/24 13:38 milk Allergy Unknown Verified 04/22/24 13:38 procaine [From Novocain] Allergy Unknown Verified 04/22/24 13:38 Current Medications Generic Name Dose Route Start Last Admin Trade Name Freq PRN Reason Stop Dose Admin Potassium Chloride/Dextrose/Sod Cl 20 meq in 1,000 mls @ 125 mls/hr 05/09/24 16:30 05/09/24 17:52 D5-Ns 0.45% + Kcl 20 Meq IV 125 mls/hr .Q8H SILVESTRE Administration PFSH Acute 2 PFSH: Medical History Abdominal hernia Coronary artery disease Hypercholesterolemia Allergic to bees Varicose veins of both lower extremities Venous stasis of both lower extremities Hx of deep venous thrombosis Hypertension Cubital tunnel syndrome on right CMC (carpometacarpal joint) sprains CMC arthritis, thumb, degenerative Encounter for monitoring Coumadin therapy Chronic deep vein thrombosis of left lower extremity Presence of IVC filter Surgical History Hx of cholecystectomy Hx of inguinal hernia repair Hx of exploratory laparotomy Hx of gastric bypass History of colon resection Family History Grandmother Cancer breast cancer(paternal) uterus(maternal) Mother Cancer throat Brother Heart disease Cancer Father Heart disease Denies family history of Diabetes Chronic kidney disease (CKD) Lung disease Social History Smoking and tobacco/nicotine status: former use of tobacco/nicotine Alcohol intake: current Alcohol intake frequency: holidays/special occasions only Substance/Drug Use: never Adopted: No Caregiver/support person: No Lives independently: No Household members: spouse Marital status: service: No Current occupational status: retired Sexually active: Yes Do you think of yourself as: Straight/Heterosexual Current gender identity: Female Vitals/I&O/Wt Last Vital Signs Temp 98.1 F 05/09/24 15:07 Pulse 80 05/09/24 18:20 Resp 18 05/09/24 15:07 BP 104/86 05/09/24 16:12 Pulse Ox 93 05/09/24 18:20 O2 Del Method Room Air 05/09/24 15:07 Weight last 48 hrs Weight 279 lb Physical Exam 2 GI: OTHER: Abdomen is distended, there is significant tenderness over the right lower quadrant hernia, no rebound tenderness at this time. Data 05/09/24 15:42 05/09/24 15:42 A&P Assessment and plan (1) Presence of IVC filter: (2) Chronic deep vein thrombosis of left lower extremity: (3) Morbid obesity with BMI of 50.0-59.9, adult: (4) Abdominal hernia: Qualifiers: Hernia type: other abdominal hernia Obstruction and gangrene presence: with obstruction but without gangrene Qualified Code(s): K45.0 - Other specified abdominal hernia with obstruction, without gangrene (5) SBO (small bowel obstruction): Plan This is a 73-year-old female who presents to the hospital with a small bowel obstruction in the setting of multiple previous intra-abdominal surgeries, including multiple surgeries for small bowel obstruction and history of ventral abdominal wall hernias. According to the patient last episode of bowel obstruction was in August, at the time she was seen in [facility] and was managed with conservative treatment. In addition patient states that several times she was told by outside providers in [facility] and in [place] that she is not a surgical candidate and will only proceed with surgery in the case of perforation. My clinical examination is consistent with a small bowel obstruction. I personally evaluated the CT scan of the abdomen, patient has abdominal wall hernia with loss of domain, the whole right hemiabdomen abdominal wall is completely destroyed and almost absent, the lower portion of her hernia is immediately under the skin, at this level there is a surgical anastomosis where there is significant dilation, I suspect that this might be the transition point. I have had extensive conversation with the patient regarding her prognosis. I have explained to the patient that I will not be able to offer any kind of surgical intervention in our facility, as in the case on an open abdominal operation there is no abdominal wall that I can use to provide coverage, which will likely result in evisceration, enterocutaneous fistula and possible . I have explained that the only option that we have in our facility is to proceed with conservative treatment with the hopes of achieving resolution of her small bowel obstruction. I have discussed with the patient and indicates that she wants to be more aggressive with her treatment and she wants to proceed with surgery in the case of perforation or clinical deterioration the best option will be to transfer her to higher level of care where the possibility of advance surgical capabilities are available. At this point and after extensive discussion she has decided that she does not want to proceed with any more intra-abdominal surgeries, I have explained to the patient that this will mean that the if she does not resolve with NG tube placement most likely she will progress into perforation sepsis and , she is under standing and still will not like to proceed with any kind of surgical intervention. We also had extensive discussion regarding CODE STATUS the patient has stated that if that is the case she will prefer to be DNR and DNI and kept comfortable with pain medication relieving her abdominal distention with an NG tube. I do agree that this is at the moment the only viable option for this patient and since the patient goals of care aligned with the capabilities that we can offer in our institution I have agreed to continue to follow her as inpatient for an attempt of conservative treatment of a small bowel obstruction. I was able to place an NG tube at the bedside and verified with imaging. NG tube should be continuously to low intermittent wall suction. Patient currently have pain medication as needed for pain control. If patient shows improvement of her symptoms I will consider doing a Gastrografin trial in 48 hours to evaluate for resolution of a small bowel obstruction. The plan has been communicated with the medical team and with the ER team. Coding Level of Care Code 70522 Diagnoses Presence of IVC filter Z95.828 Chronic deep vein thrombosis of left lower extremity I82.502 Morbid obesity with BMI of 50.0-59.9, adult E66.01; Z68.43 Other specified abdominal hernia with obstruction and without gangrene K45.0 Hernia type: other abdominal hernia Obstruction and gangrene presence: with obstruction but without gangrene SBO (small bowel obstruction) K56.609
--- NOTE | 2024-05-09 19:21 | PC.NURSE ---
Day shift nurse states she called report to Alexia FONTANEZ on med surg. This nurse spoke to Alayna FONTANEZ on med surg who received report from Alexia FONTANEZ.
[2024-05-09] MEDS: morphine 4 mg/mL SDV 1 mL 2 MG IVP (21:11)
[2024-05-09] MEDS: cefTRIAXone 1,000 mg SDV 1000 MG IVP (21:12)
[2024-05-09] MEDS: metoclopramide 5 mg/mL SDV 2 mL IVP (21:12)
[2024-05-09] MEDS: pantoprazole 40 mg SDV IVP (21:12)
[2024-05-10] VITALS (13 sets, daily range): BP systolic 110–150; BP diastolic 57–80; PULSE 69–84; RESP 15–19; TEMP 36.4–36.6; O2SAT 92–94
[2024-05-10] MEDS: morphine 4 mg/mL SDV 1 mL 2 MG IVP ×4 (04:04→23:38)
[2024-05-10] MEDS: D5-NS 0.45% + KCL 20 mEq 20 MEQ/1,000 ML BAG 125 MEQ IV ×3 (04:04→21:12)
[2024-05-10 04:56] LABS: Basophils % 0.5 %; Eosinophils % 0.3 %; Hematocrit 44.3 % (36-47); Lymphocytes # 1.5 10^3/uL (0.8-4.8); Lymphocytes % 22.9 %; Mean Corpuscular HGB Conc 32.1 g/dL (30-55); Mean Corpuscular Volume 90.4 fl (85-98); Monocytes # 0.7 10^3/uL (0.2-0.9); Monocytes % 10.3 %; Neutrophils # 4.15 10^3/uL (1.8-7.7); Neutrophils % 65.7 %; Nucleated Red Blood Cells % 0 %; Platelet Count 291 10^3/cmm (157-399); Red Cell Distribution Width 14.2 % (12.1-15.1); White Blood Count 6.32 10^3/uL (3.29-11.43)
[2024-05-10 05:08] LABS: INR 2.31 (0.8-1.2)
[2024-05-10 05:19] LABS: Estmated Average Glucose 114; Hemoglobin A1C 5.6 % (4.0-6.0)
[2024-05-10 05:27] LABS: Chol HDL Ratio 3.98 mg/dL (0.0-4.40); Cholesterol 179 mg/dL (0-200); HDL Cholesterol 45 mg/dL (60-100); LDL Cholesterol Calculated 117 mg/dL (50-129); NT Pro B Type Natriuretic Pept 176 pg/mL (0-125); Triglycerides 85 mg/dL (0-150)
[2024-05-10 06:00] LABS: Alanine Aminotransferase 18 U/L (0-33); Albumin Level 3.8 g/dL (3.5-5.2); Alkaline Phosphatase 96 U/L (35-105); Anion Gap 17.5 (5-19); Aspartate Amino Transferase 21 U/L (0-32); Blood Urea Nitrogen 19 mg/dL (8-23); Calcium 8.7 mg/dL (8.5-10.5); Carbon Dioxide 27 mmol/L (22-29); Chloride 98 mmol/L (98-107); Creatinine Clr Calc Pharmacy 82.7897; Globulin 2.4 g/dL (1.3-4.6); Glucose 106 mg/dL (65-115); Magnesium 2.1 mg/dL (1.7-2.3); Osmolality Calculated 291 mOsm/kg (285-295); Phosphorus 3.3 mg/dL (2.5-4.5); Potassium 3.5 mmol/L (3.5-5.1); Sodium 139 mmol/L (136-145); Thyroid Stimulating Hormone 1.88 uIU/mL (0.27-4.20); Total Bilirubin 0.9 mg/dL (0.15-1.2); Total Protein 6.2 g/dL (6.6-8.7)
[2024-05-10] MEDS: flu vacc pf 24-25 (6 mos+) SYRINGE 45 MCG IM (08:44)
[2024-05-10] MEDS: pneumococcal (23 valent) SDV 0.5 mL IM (08:48)
[2024-05-10] MEDS: pantoprazole 40 mg SDV IVP ×2 (08:50→20:30)
--- NOTE | 2024-05-10 09:06 | P.PN_ITS ---
Subjective 2 Subjective: Patient has been doing okay overnight, output from the NG tube has been minimal, her abdominal pain has improved and she states that she passed gas 1 time. Vitals/I&O/Wt Last Vital Signs Temp 97.8 F 05/10/24 07:15 Pulse 70 05/10/24 07:15 Resp 16 05/10/24 07:15 BP 110/57 05/10/24 07:15 Pulse Ox 93 05/10/24 07:15 O2 Del Method Room Air 05/10/24 07:15 O2 Flow Rate 2 05/09/24 19:24 05/09/24 05/10/24 05/10/24 22:59 06:59 14:59 Intake Total 416.667 / 416.667 858.333 / 1275.000 Balance 416.667 / 416.667 858.333 / 1275.000 Weight last 48 hrs Weight 281 lb 7 oz Weight 274 lb 3.2 oz Weight 279 lb Physical Exam 2 GI: OTHER: Abdomen is soft, area that was tender in the lower abdomen at the level of the hernia site is softer and only minimally tender Data 05/10/24 04:20 05/10/24 04:20 A&P Assessment and plan (1) Presence of IVC filter: (2) Morbid obesity with BMI of 50.0-59.9, adult: (3) Abdominal hernia: Qualifiers: Hernia type: other abdominal hernia Obstruction and gangrene presence: with obstruction but without gangrene Qualified Code(s): K45.0 - Other specified abdominal hernia with obstruction, without gangrene (4) Small bowel obstruction due to adhesions: Plan Patient showing adequate progression with conservative management of small bowel obstruction in the setting of ventral abdominal wall hernia with loss of domain. Will continue current management I have encouraged patient to ambulate if patient is doing well by tomorrow morning we will attempt a Gastrografin trial. Attestations 2 Medical Necessity Statement*: Per medical team Coding Level of Care Code Acute Code for Chg Fwd Diagnoses Presence of IVC filter Z95.828 Morbid obesity with BMI of 50.0-59.9, adult E66.01; Z68.43 Other specified abdominal hernia with obstruction and without gangrene K45.0 Hernia type: other abdominal hernia Obstruction and gangrene presence: with obstruction but without gangrene Small bowel obstruction due to adhesions K56.50
--- NOTE | 2024-05-10 09:32 | PC.SOCIAL ---
IMM Update pg 2 of IMM Updated and reviewed w/ patient. Copy provided and copy dated, initialed and placed in chart.
--- NOTE | 2024-05-10 14:39 | P.PN_ITS ---
Subjective 2 Subjective: Patient was seen this morning, she is a bit nauseous, NG tube in place, abdominal pain is well-controlled, has not had a bowel movement, is not passing gas Vitals/I&O/Wt Last Vital Signs Temp 97.9 F 05/10/24 11:20 Pulse 77 05/10/24 11:20 Resp 15 05/10/24 11:20 BP 128/80 05/10/24 11:20 Pulse Ox 93 05/10/24 11:20 O2 Del Method Room Air 05/10/24 11:20 O2 Flow Rate 2 05/09/24 19:24 05/09/24 05/10/24 05/10/24 22:59 06:59 14:59 Intake Total 416.667 / 416.667 858.333 / 2170.589 7759 / 1000 Balance 416.667 / 416.667 858.333 / 5045.326 8009 / 1000 Weight last 48 hrs Weight 127.658 kg Weight 124.375 kg Weight 126.552 kg Physical Exam 2 Const: COMMON NORMALS: no acute distress and patient oriented x3 Resp: COMMON NORMALS: normal respiratory effort, No retractions, No use of accessory muscles and clear to auscultation bilaterally AUSCULTATION: clear to auscultation bilaterally Cardio: COMMON NORMALS: regular rate, regular rhythm, S1 normal heart sound present and S2 normal heart sound present RATE: regular rate RHYTHM: r egular rhythm HEART SOUNDS: S1 normal heart sound present and S2 normal heart sound present GI: OTHER: Abdomen soft, slightly distended, decreased bowel sounds, no guarding, no rebound tenderness Extremity: COMMON NORMALS: no pedal edema Neuro: COMMON NORMALS: patient oriented x3 Data 05/10/24 04:20 05/10/24 04:20 A&P Assessment and plan (1) SBO (small bowel obstruction): (2) UTI (urinary tract infection): Plan Small bowel obstruction CT/CT abdomen pelvis wo con [id number] IMPRESSION: Diffuse small bowel distension which may indicate distal small bowel obstruction. This could be related to incarceration within 1 of the hernias. Plan -NG tube placed, monitor output -Bowel rest -IV fluids -Zofran, Reglan for nausea -Morphine for pain control -Abdominal exams -General Surgery consulted UTI -Continue Rocephin History of DVT, PE, on Coumadin, will hold for now, has a history of IVC filter Protonix for GI prophylaxis DVT prophylaxis INR 2.28, Coumadin on hold, has IVC filter Attestations 2 Medical Necessity Statement*: Patient requires hospitalization for small bowel obstruction Diagnoses SBO (small bowel obstruction) K56.609 UTI (urinary tract infection) N39.0
[2024-05-10] MEDS: cefTRIAXone 1,000 mg SDV 1000 MG IVP (20:30)
[2024-05-11] VITALS (9 sets, daily range): BP systolic 115–157; BP diastolic 66–80; PULSE 63–79; RESP 15–17; TEMP 36.3–36.8; O2SAT 92–95
[2024-05-11] MEDS: D5-NS 0.45% + KCL 20 mEq 20 MEQ/1,000 ML BAG 125 MEQ IV ×3 (05:06→21:47)
[2024-05-11] MEDS: acetaminophen 325 mg Tablet 650 MG PO ×2 (05:09→21:49)
[2024-05-11 05:12] LABS: Basophils % 0.8 %; Eosinophils # 0.1 10^3/uL (0.0-0.8); Eosinophils % 1.3 %; Lymphocytes # 1.7 10^3/uL (0.8-4.8); Lymphocytes % 32.4 %; Mean Corpuscular HGB Conc 31.9 g/dL (30-55); Mean Corpuscular Hemoglobin 29.3 pg (27-33); Mean Corpuscular Volume 92.1 fl (85-98); Mean Platelet Volume 8.8 fL (7.4-10.4); Monocytes # 0.5 10^3/uL (0.2-0.9); Monocytes % 8.6 %; Neutrophils # 2.98 10^3/uL (1.8-7.7); Neutrophils % 56.7 %; Nucleated Red Blood Cells % 0 %; Platelet Count 265 10^3/cmm (157-399); Red Blood Count 4.67 10^6/uL (3.85-5.65); Red Cell Distribution Width 14.5 % (12.1-15.1); White Blood Count 5.25 10^3/uL (3.29-11.43)
[2024-05-11 05:29] LABS: Alanine Aminotransferase 19 U/L (0-33); Albumin Level 3.4 g/dL (3.5-5.2); Alkaline Phosphatase 92 U/L (35-105); Anion Gap 11.7 (5-19); Aspartate Amino Transferase 25 U/L (0-32); Blood Urea Nitrogen 12 mg/dL (8-23); Calcium 8.3 mg/dL (8.5-10.5); Carbon Dioxide 28 mmol/L (22-29); Chloride 102 mmol/L (98-107); Creatinine Clr Calc Pharmacy 84.0641; Globulin 2.9 g/dL (1.3-4.6); Glucose 99 mg/dL (65-115); Magnesium 1.9 mg/dL (1.7-2.3); Osmolality Calculated 286 mOsm/kg (285-295); Phosphorus 2.1 mg/dL (2.5-4.5); Potassium 3.7 mmol/L (3.5-5.1); Sodium 138 mmol/L (136-145); Total Bilirubin 0.8 mg/dL (0.15-1.2); Total Protein 6.3 g/dL (6.6-8.7)
[2024-05-11] MEDS: pantoprazole 40 mg SDV IVP ×2 (08:07→19:52)
[2024-05-11] MEDS: morphine 4 mg/mL SDV 1 mL 2 MG IVP ×2 (08:09→13:31)
--- NOTE | 2024-05-11 09:06 | P.PN_ITS ---
Subjective 2 Subjective: Overall improved over the last 24 hours, only 200 cc of output from the NG tube, less abdominal pain and has been passing some gas. Vitals/I&O/Wt Last Vital Signs Temp 97.4 F L 05/11/24 07:10 Pulse 77 05/11/24 07:10 Resp 16 05/11/24 08:09 BP 157/80 05/11/24 07:10 Pulse Ox 93 05/11/24 07:10 O2 Del Method Room Air 05/11/24 07:10 O2 Flow Rate 2 05/09/24 19:24 05/10/24 05/11/24 05/11/24 22:59 06:59 14:59 Intake Total 999 987.5 / 2987.5 Balance 999 987.5 / 2987.5 Weight last 48 hrs Weight 288 lb 7 oz Weight 281 lb 7 oz Weight 274 lb 3.2 oz Weight 279 lb Physical Exam 2 GI: OTHER: Abdomen is soft minimally tender in the right lower quadrant at the level of the hernia. Data 05/11/24 04:55 05/11/24 04:55 A&P Assessment and plan (1) Hernia of anterior abdominal wall: (2) Small bowel obstruction due to adhesions: Plan Plan for today is to do a Gastrografin trial, if the patient is able to have a bowel movement or Gastrografin is seen in the colon we will consider this a success will remove NG tube and transition to clear liquid diet. Had extensive discussion with the patient need for proceeding with a Gastrografin trial as patient had a Gastrografin trial in the past causing her to have diarrhea for multiple days, initially she only agreed to diluted dose of Gastrografin but after discussion she finally agree to proceed with a full dose trial as this could help been therapeutic for her small bowel obstruction. She is very emotional this morning, she tells me that she has been dealing with this problem for almost 30 years and nobody has been able to help her, I attempted to offer some support, we will ask for pastoral care to come by today. -100 cc of Gastrografin diluted in 50 cc of water was administered through the NG tube -X-rays at 2 PM 8 PM and tomorrow morning -Further plan will depend on patient response to therapy. Attestations 2 Medical Necessity Statement*: Per medical team Coding Level of Care Code Acute Code for Chg Fwd Diagnoses Hernia of anterior abdominal wall K43.9 Small bowel obstruction due to adhesions K56.50
[2024-05-11] MEDS: diatrizoate meglumine 120 mL Sol PO (11:46)
--- NOTE | 2024-05-11 14:00 | XRR_ITS ---
PROCEDURE INFORMATION: Exam: XR Abdomen Exam date and time: 05/11/2024 2:01 PM Age: 73 years old Clinical indication: Screening exam; Patient HX: Gastrograffin trial 6hr film; Abdominal pain; Distention; HX sbo TECHNIQUE: Imaging protocol: Radiologic exam of the abdomen. Views: Frontal supine view of the abdomen. 1 View. COMPARISON: CR XR abdomen 1V* [id number] 05/09/2024 6:12 PM FINDINGS: Gastrointestinal tract: Retained barium in loops of small bowel and throughout the colon consistent with no obvious total bowel obstruction. Organs: Stable cholecystectomy. Bones/joints: Moderate to severe multilevel spine degenerative changes including degenerative disc disease, spondylosis and facet degenerative changes. XR/XR abdomen 1V* [id number] IMPRESSION: Retained barium in loops of small bowel and throughout the colon consistent with no obvious total bowel obstruction.
--- NOTE | 2024-05-11 14:59 | P.PN_ITS ---
Subjective 2 Subjective: Patient was seen this morning, she is seen up in a chair denies any bowel movement, abdominal pain has improved, NG tube in place Vitals/I&O/Wt Last Vital Signs Temp 97.7 F 05/11/24 12:01 Pulse 65 05/11/24 12:01 Resp 16 05/11/24 13:31 BP 148/76 05/11/24 12:01 Pulse Ox 93 05/11/24 12:01 O2 Del Method Room Air 05/11/24 12:01 O2 Flow Rate 2 05/09/24 19:24 05/10/24 05/11/24 05/11/24 22:59 06:59 14:59 Intake Total 999 / 1999 987.5 / 2987.5 1000 / 1000 Balance 999 / 1999 987.5 / 2987.5 1000 / 1000 Weight last 48 hrs Weight 130.833 kg Weight 127.658 kg Weight 124.375 kg Weight 126.552 kg Physical Exam 2 Const: COMMON NORMALS: no acute distress and patient oriented x3 Resp: COMMON NORMALS: normal respiratory effort, No retractions, No use of accessory muscles and clear to auscultation bilaterally AUSCULTATION: clear to auscultation bilaterally Cardio: COMMON NORMALS: regular rate, regular rhythm, S1 normal heart sound present and S2 normal heart sound present RATE: regular rate RHYTHM: r egular rhythm HEART SOUNDS: S1 normal heart sound present and S2 normal heart sound present GI: OTHER: Abdomen soft, distended, good bowel sounds in all 4 quadrants, no guarding, no rebound currently Extremity: COMMON NORMALS: no pedal edema Neuro: COMMON NORMALS: patient oriented x3 Psych: COMMON NORMALS: mental status grossly normal Data 05/11/24 04:55 05/11/24 04:55 Micro: Microbiology 05/09/24 16:22 Urine Culture - Final Urine,Clean Catch A&P Assessment and plan (1) SBO (small bowel obstruction): (2) UTI (urinary tract infection): Plan Small bowel obstruction CT/CT abdomen pelvis wo con [id number] IMPRESSION: Diffuse small bowel distension which may indicate distal small bowel obstruction. This could be related to incarceration within 1 of the hernias. Plan -NG tube placed, monitor output -Bowel rest -IV fluids -Zofran, Reglan for nausea -Morphine for pain control -Abdominal exams -General Surgery consulted UTI -Continue Rocephin History of DVT, PE, on Coumadin, will hold for now, has a history of IVC filter Protonix for GI prophylaxis DVT prophylaxis INR 2.2, Coumadin on hold, has IVC filter Attestations 2 Medical Necessity Statement*: Patient requires hospitalization for small bowel obstruction, Diagnoses SBO (small bowel obstruction) K56.609 UTI (urinary tract infection) N39.0
[2024-05-11] MEDS: cefTRIAXone 1,000 mg SDV 1000 MG IVP (19:52)
[2024-05-12 03:32] LABS: Basophils % 0.8 %; Eosinophils # 0.1 10^3/uL (0.0-0.8); Eosinophils % 1.7 %; Hematocrit 39.8 % (36-47); Lymphocytes # 1.5 10^3/uL (0.8-4.8); Lymphocytes % 29.5 %; Mean Corpuscular HGB Conc 31.7 g/dL (30-55); Mean Corpuscular Hemoglobin 28.9 pg (27-33); Mean Corpuscular Volume 91.3 fl (85-98); Mean Platelet Volume 9.2 fL (7.4-10.4); Monocytes # 0.5 10^3/uL (0.2-0.9); Neutrophils # 3.02 10^3/uL (1.8-7.7); Neutrophils % 57.8 %; Nucleated Red Blood Cells % 0 %; Platelet Count 260 10^3/cmm (157-399); Red Blood Count 4.36 10^6/uL (3.85-5.65); Red Cell Distribution Width 14.4 % (12.1-15.1); White Blood Count 5.22 10^3/uL (3.29-11.43)
[2024-05-12 03:46] LABS: INR 2.09 (0.8-1.2)
[2024-05-12 03:47] VITALS: BP 133/91; PULSE 71; RESP 16; TEMP 36.4; O2SAT 94
[2024-05-12 04:00] VITALS: BP 133/91; PULSE 71; RESP 16; TEMP 36.4
--- NOTE | 2024-05-12 04:00 | XRR_ITS ---
PROCEDURE INFORMATION: Exam: XR Abdomen Exam date and time: 05/12/2024 4:35 AM Age: 73 years old Clinical indication: Other: F/u post gastrograffin admin; Prior surgery; Surgery date: 6+ months; Surgery type: Lap band. Gb. Hernia repair x6; Patient HX: F/u 15 hours post gastrograffin administration; Additional info: Follow up gastrografin 5am TECHNIQUE: Imaging protocol: Radiologic exam of the abdomen. Views: Frontal supine view of the abdomen. 1 View. COMPARISON: CR XR abdomen 1V* [id number] 05/11/2024 2:01 PM FINDINGS: Lungs: Lung bases clear. Gastrointestinal tract: Oral contrast is noted throughout the colon and within the rectum. No free air. Nonspecific bowel gas pattern. Interval passage of the contrast through the small bowel. Bones/joints: Unremarkable. XR/XR abdomen 1V* [id number] IMPRESSION: Contrast passes into the colon and rectum.
[2024-05-12 04:01] LABS: Alanine Aminotransferase 23 U/L (0-33); Albumin Level 3.2 g/dL (3.5-5.2); Alkaline Phosphatase 83 U/L (35-105); Anion Gap 7.8 (5-19); Aspartate Amino Transferase 27 U/L (0-32); Blood Urea Nitrogen 9 mg/dL (8-23); Calcium 8.3 mg/dL (8.5-10.5); Carbon Dioxide 28 mmol/L (22-29); Chloride 106 mmol/L (98-107); Creatinine Clr Calc Pharmacy 84.0641; Globulin 2.3 g/dL (1.3-4.6); Glucose 100 mg/dL (65-115); Osmolality Calculated 285 mOsm/kg (285-295); Potassium 3.8 mmol/L (3.5-5.1); Sodium 138 mmol/L (136-145); Total Bilirubin 0.6 mg/dL (0.15-1.2); Total Protein 5.5 g/dL (6.6-8.7)
[2024-05-12] MEDS: D5-NS 0.45% + KCL 20 mEq 20 MEQ/1,000 ML BAG 125 MEQ IV (05:55)
[2024-05-12 07:45] VITALS: BP 137/73; PULSE 67; RESP 17; TEMP 36.3; O2SAT 94
[2024-05-12 09:06] VITALS: PULSE 74; RESP 16; O2SAT 95
--- NOTE | 2024-05-12 09:45 | P.PN_ITS ---
Subjective 2 Subjective: Excellent progression over the last 24 hours, Gastrografin trial was a success, she had several bowel movements and x-ray this morning confusion contrast in the colon and rectum. No significant abdominal pain Vitals/I&O/Wt Last Vital Signs Temp 97.3 F L 05/12/24 07:45 Pulse 74 05/12/24 09:06 Resp 16 05/12/24 09:06 BP 137/73 05/12/24 07:45 Pulse Ox 95 05/12/24 09:06 O2 Del Method Room Air 05/12/24 09:06 O2 Flow Rate 2 05/09/24 19:24 05/11/24 05/12/24 05/12/24 22:59 06:59 14:59 Intake Total 1000 / 2000 1000 / 3000 1000 / 1000 Balance 1000 / 2000 1000 / 3000 1000 / 1000 Weight last 48 hrs Weight 298 lb 7 oz Weight 288 lb 7 oz Physical Exam 2 GI: OTHER: Abdomen is soft nontender there is a hernia in the right lower quadrant there is minimal tenderness in this level but this much improved from previous examination. Data 05/12/24 02:16 05/12/24 02:16 Micro: Microbiology 05/09/24 16:22 Urine Culture - Final Urine,Clean Catch A&P Assessment and plan (1) Hernia of anterior abdominal wall: (2) Small bowel obstruction due to adhesions: Plan Excellent progression of this patient small bowel obstruction, she has been started on clear liquid diet and can be advanced to full liquid diet as tolerated, I recommend that we discharged her on a full liquid diet with twice a day MiraLAX when she transitions home. She should continue also taking her docusate. I had extensive discussion with the patient regarding her clinical condition and I have informed her that this is likely to happen again in the future due to multiple intra-abdominal surgeries as well as previous episodes of SBO. Patient shows understanding. Patient can follow-up in my clinic in 2 weeks once she is discharged from the hospital. Attestations 2 Medical Necessity Statement*: Per medical team Coding Level of Care Code Acute Code for Chg Fwd Diagnoses Hernia of anterior abdominal wall K43.9 Small bowel obstruction due to adhesions K56.50
[2024-05-12] MEDS: pantoprazole 40 mg SDV IVP (09:49)
[2024-05-12] MEDS: acetaminophen 325 mg Tablet 650 MG PO (09:50)
--- NOTE | 2024-05-12 10:28 | PM.DCS ---
Discharge Providers Date of Admission: 05/09/24 18:26 Date of Discharge: May 12, 2024 Attending Provider at Admission: Arsh Colmenares MD Attending Provider at Discharge: Arsh Colmenares MD Primary Care Provider: EUGENE Thompson Diagnoses at Discharge Discharge Diagnosis (1) Hernia of anterior abdominal wall: Status: Acute (2) Small bowel obstruction due to adhesions: Status: Acute Reason for Visit Reason for Visit: abd pain Hospital Course Hospital Course Diamond Cochran is a 73 year old female history of incarcerated ventral hernia status post multiple surgery, history of PE, hypertension obesity, history of DVT status post IVC filter placement, history of hypercoagulability on Coumadin, history of CAD who presents [facility] for abdominal pain, nausea, vomiting. Currently patient is alert oriented x 3, following all commands, complains of feeling nauseous, abdominal pain, she has not had a bowel movement in 24 hours continues to have nausea, vomiting, poor appetite. Patient tells me that she has had a history of bowel obstructions, requiring surgery in the past, her last significant hospitalization, at [facility] for her bowel obstruction, she has been told that there is no more surgical interventions they can offer for her bowel obstruction at the present time unless she has a bowel rupture. Small bowel obstruction CT/CT abdomen pelvis wo con [id number] IMPRESSION: Diffuse small bowel distension which may indicate distal small bowel obstruction. This could be related to incarceration within 1 of the hernias. -Patient was admitted to [facility] for small bowel obstruction, medically managed NG tube placed, IV fluids, general surgery was consulted, she was clinically monitored, overall clinically improved, passed Gastrografin trial, having several bowel movements 05/12/2024, tolerating full liquid diet, no recurrent abdominal pain, no nausea, no vomiting. She will be discharged on a bowel regimen, on full liquid diet with instructions to slowly advance diet to GI soft diet as outpatient. Follow-up with primary care provider as outpatient. In terms of her UTI she completed antibiotic therapy as inpatient. Follow-up with general surgery in 2 weeks. In terms of her Coumadin, she should resume her home Coumadin therapy recheck her INR tomorrow, call her primary care provider with her INR. Physical Exam Const: COMMON NORMALS: no acute distress and patient oriented x3 Neck/C-Spine: COMMON NORMALS: no JVD Resp: COMMON NORMALS: normal respiratory effort, No retractions, No use of accessory muscles and clear to auscultation bilaterally AUSCULTATION: clear to auscultation bilaterally Cardio: COMMON NORMALS: no JVD, regular rate, regular rhythm, S1 normal heart sound present and S2 normal heart sound present RATE: regular rate RHYTHM: regular rhythm HEART SOUNDS: S1 normal heart sound present and S2 normal heart sound present GI: COMMON NORMALS: Normal to inspection, nondistended, normoactive bowel sounds present, Soft to palpation and non-tender PALPATION: Yes Soft to palpation Extremity: COMMON NORMALS: no pedal edema Neuro: COMMON NORMALS: patient oriented x3 Psych: COMMON NORMALS: mental status grossly normal Discharge Data Studies Completed and Pending Completed Studies During Hospitalization Category Date Time Status CT abdomen pelvis wo con [id number] Stat Cat Scan 05/09/24 15:27 Completed XR abdomen 1V* [id number] Routine Exams 05/11/24 14:00 Completed XR abdomen 1V* [id number] Routine Exams 05/12/24 04:00 Completed XR abdomen 1V* [id number] Stat Exams 05/09/24 18:10 Completed Radiology Impressions Abdomen/Pelvis CT 05/09/24 15:27 IMPRESSION: Diffuse small bowel distension which may indicate distal small bowel obstruction. This could be related to incarceration within 1 of the hernias. COMMENTS: For patients with an IVC filter, recommend assessment for a management plan for the patient's IVC filter. If there is no established management plan, recommend referral to an interventional clinician on a nonemergent basis for evaluation. Abdomen X-Ray 05/12/24 04:00 IMPRESSION: Contrast passes into the colon and rectum. Laboratory Results WBC 5.22 10^3/uL (3.29-11.43) 05/12/24 02:16 RBC 4.36 10^6/uL (3.85-5.65) 05/12/24 02:16 Hgb 12.60 g/dL (11.27-16.99) 05/12/24 02:16 Hct 39.8 % (36-47) 05/12/24 02:16 MCV 91.3 fl (85-98) 05/12/24 02:16 MCH 28.9 pg (27-33) 05/12/24 02:16 MCHC 31.7 g/dL (30-55) 05/12/24 02:16 RDW 14.4 % (12.1-15.1) 05/12/24 02:16 Plt Count 260 10^3/cmm (157-399) 05/12/24 02:16 MPV 9.2 fL (7.4-10.4) 05/12/24 02:16 Neut % (Auto) 57.8 % 05/12/24 02:16 Lymph % (Auto) 29.5 % 05/12/24 02:16 [place] % (Auto) 10.0 % 05/12/24 02:16 Eos % (Auto) 1.7 % 05/12/24 02:16 Baso % (Auto) 0.8 % 05/12/24 02:16 Neut # (Auto) 3.02 10^3/uL (1.8-7.7) 05/12/24 02:16 Lymph # (Auto) 1.5 10^3/uL (0.8-4.8) 05/12/24 02:16 [place] # (Auto) 0.5 10^3/uL (0.2-0.9) 05/12/24 02:16 Eos # (Auto) 0.1 10^3/uL (0.0-0.8) 05/12/24 02:16 Baso # (Auto) 0.0 10^3/uL (0.0-0.1) 05/12/24 02:16 Nucleated RBC % (auto) 0 % 05/12/24 02:16 Nucleated RBCs # 0.0 /100WBC 05/12/24 02:16 PT 24.20 SECONDS (12.1-14.9) H 05/12/24 02:16 INR 2.09 (0.8-1.2) H 05/12/24 02:16 Sodium 138 mmol/L (136-145) 05/12/24 02:16 Potassium 3.8 mmol/L (3.5-5.1) 05/12/24 02:16 Chloride 106 mmol/L (98-107) 05/12/24 02:16 Carbon Dioxide 28 mmol/L (22-29) 05/12/24 02:16 Anion Gap 7.8 (5-19) 05/12/24 02:16 BUN 9 mg/dL (8-23) 05/12/24 02:16 Creatinine 0.5 mg/dL (0.5-0.9) 05/12/24 02:16 GFR Calculation Not Reportable 05/12/24 02:16 Glucose 100 mg/dL (65-115) 05/12/24 02:16 Estimat Average Glucose 114 05/10/24 04:20 Hemoglobin A1c 5.6 % (4.0-6.0) 05/10/24 04:20 Calculated Osmolality 285 mOsm/kg (285-295) 05/12/24 02:16 Lactic Acid 1.7 mmol/L (0.5-2.2) 05/09/24 15:42 Calcium 8.3 mg/dL (8.5-10.5) L 05/12/24 02:16 Phosphorus 2.0 mg/dL (2.5-4.5) L 05/12/24 02:16 Magnesium 2.0 mg/dL (1.7-2.3) 05/12/24 02:16 Total Bilirubin 0.6 mg/dL (0.15-1.2) 05/12/24 02:16 AST 27 U/L (0-32) 05/12/24 02:16 ALT 23 U/L (0-33) 05/12/24 02:16 Alkaline Phosphatase 83 U/L (35-105) 05/12/24 02:16 NT-Pro-B Natriuret Pep 176 pg/mL (0-125) H 05/10/24 04:20 Total Protein 5.5 g/dL (6.6-8.7) L 05/12/24 02:16 Albumin 3.2 g/dL (3.5-5.2) L 05/12/24 02:16 Globulin 2.3 g/dL (1.3-4.6) 05/12/24 02:16 Triglycerides 85 mg/dL (0-150) 05/10/24 04:20 Cholesterol 179 mg/dL (0-200) 05/10/24 04:20 LDL Cholesterol, Calc 117 mg/dL (50-129) 05/10/24 04:20 HDL Cholesterol 45 mg/dL (60-100) L 05/10/24 04:20 LDL/HDL Ratio 2.60 RATIO (0.00-3.22) 05/10/24 04:20 Cholesterol/HDL Ratio 3.98 mg/dL (0.0-4.40) 05/10/24 04:20 TSH 1.88 uIU/mL (0.27-4.20) 05/10/24 04:20 Urine Color Dark yellow (Yellow) A 05/09/24 16:22 Urine Appearance Turbid (CLEAR) A 05/09/24 16:22 Urine pH 6.0 (5-7) 05/09/24 16:22 Ur Specific [place] 1.025 (1.005-1.030) 05/09/24 16:22 Urine Protein 1+ (Negative) A 05/09/24 16:22 Urine Glucose (UA) Negative (Normal) 05/09/24 16:22 Urine Ketones Trace (Negative) 05/09/24 16:22 Urine Blood 2+ (Negative) A 05/09/24 16:22 Urine Nitrate Negative (Negative) 05/09/24 16:22 Urine Bilirubin Negative (Negative) 05/09/24 16:22 Urine Urobilinogen 1.0 mg/dL (Negative) 05/09/24 16:22 Ur Leukocyte Esterase 1+ (Negative) A 05/09/24 16:22 Urine RBC 21-50 /hpf (0-2) H 05/09/24 16:22 Urine WBC 21-50 /hpf (0-5) H 05/09/24 16:22 Ur Squamous Epith Cells 51-100 /hpf (0-5) 05/09/24 16:22 Amorphous Sediment Not Reportable 05/09/24 16:22 Urine Bacteria 3+ /hpf (NONE) H 05/09/24 16:22 Hyaline Casts 7.42 /lpf 05/09/24 16:22 Vitals Last Vital Signs Temp 97.3 F L 05/12/24 07:45 Pulse 74 05/12/24 09:06 Resp 16 05/12/24 09:06 BP 137/73 05/12/24 07:45 Pulse Ox 95 05/12/24 09:06 O2 Del Method Room Air 05/12/24 09:06 O2 Flow Rate 2 05/09/24 19:24 Discharge Plan Discharge Patient Disposition: Home Condition: Stable Prescriptions: New polyethylene glycol 3350 17 gram Powder In Packet 17 g PO BID 30 Days Qty: 60 0RF docusate sodium [Colace] 100 mg capsule 100 mg PO BID 30 Days Qty: 60 0RF Continued metoprolol succinate [Toprol XL] 25 mg tablet extended release 24 hr 25 mg PO DAILY Qty: 90 3RF Vit B-12 5,000 mcg PO DIRECTED Rx Instructions: 5,000 mcg twice a week epinephrine 0.3 mg/0.3 mL auto-injector 0.3 mg IM Q10M PRN (Reason: anaphylaxis) Qty: 2 0RF Rx Instructions: 340B ibuprofen 200 mg tablet 200 mg PO Q6H PRN (Reason: Pain) fluticasone propionate [Flonase Allergy Relief] 50 mcg/actuation spray,suspension 1 spray intranasal DAILY PRN (Reason: allergies) Rx Instructions: administer into each nostril albuterol sulfate 2.5 mg /3 mL (0.083 %) solution for nebulization 2.5 mg inhalation Q4H PRN (Reason: bronchospasm) 10 Days Qty: 180 0RF (DME) nebulizer and supplies See Rx Instructions .Route .MEDSUPPLY Qty: 1 0RF Rx Instructions: As directed warfarin 5 mg tablet 5 mg PO DAILY Qty: 360 0RF Protocol: Dose Management Condition: Monday Dose/Route: 5 mg Instruction: 1 x 5 mg tablet Condition: Monday Dose/Route: 5 mg Instruction: 1 x 5 mg tablet Condition: Monday Dose/Route: 5 mg Instruction: 1 x 5 mg tablet Condition: Monday Dose/Route: 5 mg Instruction: 1 x 5 mg tablet Condition: Dose/Route: 7.5 mg Instruction: 1.5 x 5 mg tablets Condition: Monday Dose/Route: 5 mg Instruction: 1 x 5 mg tablet Condition: Monday Dose/Route: 7.5 mg Instruction: 1.5 x 5 mg tablets Protocol Text: Adjustment Start Date: Monday05/03/24 INR Value: 2.6 INR Date: 05/03/24 Recheck Date: 05/10/24 Rx Instructions: 7.5mg Monday, , and Monday, 5mg Monday, Monday, Monday, and Monday fluticasone propion-salmeterol [Advair HFA] 230-21 mcg/actuation HFA aerosol inhaler 2 puff inhalation BID 30 Days Qty: 12 5RF hydrochlorothiazide 50 mg tablet See Rx Instructions .ROUTE .COMPLEX Qty: 90 3RF Dose Instruction: Take 1 tablet by mouth once daily Rx Instructions: Take 1 tablet by mouth once daily furosemide 20 mg tablet See Rx Instructions .ROUTE .COMPLEX Qty: 90 0RF Dose Instruction: Take 1 tablet by mouth once daily Rx Instructions: Take 1 tablet by mouth once daily Hair,Skin and Nails Tablet 1 tab PO DAILY cetirizine [Zyrtec] 10 mg Tablet 10 mg PO DAILY PRN (Reason: allergies) docusate sodium [Colace] 100 mg capsule 200 mg PO BID potassium 99 mg tablet 198 mg PO DAILY Discharge Orders: Discharge Order (Routine); Ordered 05/12/24 Ordered By: Arsh Colmenares Referrals: Taya Yost FNP [Primary Care Provider] - 4-7 days (We have notified your physician's clinic of the need for a follow-up appointment to be scheduled. If you have not heard from them within the next 2 business days, please call them directly. ) Discharge Diet: Full LIquid Discharge Activity: Resume usual activity Patient Instructions: Abdominal Hernia, Laxative, Stool Softeners (By mouth) (Doculax, Colace, Colace Clear, DSS), Polyethylene Glycol 3350 (By mouth) (Miralax, Healthylax..., Bowel Obstruction (DC), Opioid Safety Activity Restrictions/Additional Instructions: - Please resume your home -Recheck your INR tomorrow, please let primary care know -If you have recurrent abdominal pain go to emergency room -Please hydrate well Discharge Attestations Time Spent in Discharge Care*: greater than 30 min Quality Metrics Clinical Quality Measures [ No reported AMI, CVA or VTE this stay] Coding Level of Care Code 69717 Total time (in minutes) for Discharge: 45 Diagnoses Hernia of anterior abdominal wall K43.9 Small bowel obstruction due to adhesions K56.50
[2024-05-12] MEDS: warfarin 5 mg Tablet PO (10:51)
[2024-05-12 12:00] VITALS: BP 162/82; PULSE 72; RESP 20; TEMP 36.4; O2SAT 95
[2024-05-12 14:38] VITALS: BP 162/82; PULSE 72; RESP 20; TEMP 36.4; O2SAT 95
--- NOTE | 2024-05-14 15:19 | PC.NURSE ---
Triny from [employer] picked up patient's medications today and took them to her.
== END 2024-05-12 14:40 | disposition home or self-care (01) | DRG 394 ==
LOC: ER 15:27 → MEDSURG 18:26
PROVIDERS: Admitting Provider Family Medicine; Emergency Provider Family Medicine; PCP Registered Nurse; Visit Provider Family Medicine
DX: K43.6 Other and unspecified ventral hernia with obstruction, without gangrene (principal); I82.502 Chronic embolism and thrombosis of unspecified deep veins of left lower extremity; N39.0 Urinary tract infection, site not specified; Z68.43 Body mass index [BMI] 50.0-59.9, adult; I10 Essential (primary) hypertension; I25.10 Atherosclerotic heart disease of native coronary artery without angina pectoris; Z66 Do not resuscitate; E66.01 Morbid (severe) obesity due to excess calories; Z86.711 Personal history of pulmonary embolism; Z79.01 Long term (current) use of anticoagulants; Z87.891 Personal history of nicotine dependence; Z95.828 Presence of other vascular implants and grafts; Z98.84 Bariatric surgery status; Z98.890 Other specified postprocedural states
CPT/HCPCS: 36415; 74018; 74176; 80053; 80061; 81001; 83036; 83605; 83735; 83880; 84100; 84443; 85025; 85610; 87086; 90471; 90686; 90732; 94664; 96365; 96366; 96375; 99285; J0696; J2060; J2270; J2470; J2765; J7030

== ENCOUNTER → 2024-05-21 10:44 | Outpatient (BNVA) | payer MEDICARE, OTHER, SELFPAY | PROVIDERS: PCP Registered Nurse; Visit Provider Registered Nurse | DX: D68.59 Other primary thrombophilia (principal); I82.502 Chronic embolism and thrombosis of unspecified deep veins of left lower extremity | CPT/HCPCS: 85610 ==

== ENCOUNTER → 2024-05-28 10:33 | Outpatient (BNVA) | payer MEDICARE, OTHER, SELFPAY | PROVIDERS: PCP Registered Nurse; Visit Provider Nurse Practitioner Family | DX: L57.8 Other skin changes due to chronic exposure to nonionizing radiation (principal); L81.4 Other melanin hyperpigmentation; L82.1 Other seborrheic keratosis; D22.4 Melanocytic nevi of scalp and neck; L57.0 Actinic keratosis | CPT/HCPCS: 17000; 99213 ==

== ENCOUNTER → 2024-08-29 14:22 | Outpatient (BNVA) | payer MEDICARE, OTHER, SELFPAY | PROVIDERS: PCP Registered Nurse; Visit Provider Internal Medicine | DX: I10 Essential (primary) hypertension (principal); Z95.828 Presence of other vascular implants and grafts; Z86.718 Personal history of other venous thrombosis and embolism; K56.609 Unspecified intestinal obstruction, unspecified as to partial versus complete obstruction; I83.813 Varicose veins of bilateral lower extremities with pain; I25.10 Atherosclerotic heart disease of native coronary artery without angina pectoris | CPT/HCPCS: 99213 ==

== ENCOUNTER → 2024-12-30 14:15 | Outpatient (BNVA) | payer MEDICARE, OTHER, SELFPAY | PROVIDERS: PCP Registered Nurse; Visit Provider Registered Nurse | DX: N39.0 Urinary tract infection, site not specified (principal) | CPT/HCPCS: 81000; 87086 ==

== ENCOUNTER → 2025-01-07 13:50 | Outpatient (BNVA) | payer MEDICARE, OTHER, SELFPAY | PROVIDERS: PCP Registered Nurse; Visit Provider Registered Nurse | DX: I10 Essential (primary) hypertension (principal); R53.83 Other fatigue; E55.9 Vitamin D deficiency, unspecified; E53.8 Deficiency of other specified B group vitamins; N39.0 Urinary tract infection, site not specified | CPT/HCPCS: 80053; 81000; 82306; 82607; 85025 ==

== ENCOUNTER 2025-01-13 15:15 | Outpatient (CLI) | payer MEDICARE, OTHER, SELFPAY ==
--- NOTE | 2025-01-13 15:15 | US_ITS ---
WS: [id number] US pelv w/transvag [id number] HISTORY: R93.89 - Abnormal findings on diagnostic imaging of other... COMPARISON: 07/20/2023 Uterus: 10.8 cm x 5.9 cm x 4.9 cm. Mildly enlarged anteverted uterus. No fibroid. Endometrium: 1.6 cm. Mildly thickened endometrium with scattered cystic areas. No increased vascularity. Similar appearance as compared to the prior study. Neither ovary identified. No free fluid in the cul-de-sac. US/US pelv w/transvag [id number] IMPRESSION: 1. Mildly heterogeneous endometrium with a few scattered cystic areas. Similar appearance on the study of 07/20/2023. No history of postmenopausal vaginal blee ding was provided. These changes may be related to tamoxifen therapy or cystic endometrial hyperplasia. 2. Mild uterine enlargement. 3. Neither ovary identified.
== END 2025-01-13 15:16 | disposition home or self-care (01) ==
LOC: RAD 15:18
PROVIDERS: PCP Registered Nurse; Visit Provider Registered Nurse
DX: R93.89 Abnormal findings on diagnostic imaging of other specified body structures (principal); N85.2 Hypertrophy of uterus; N85.8 Other specified noninflammatory disorders of uterus
CPT/HCPCS: 76830; 76856

== ENCOUNTER → 2025-02-12 08:59 | Outpatient (BNVA) | payer MEDICARE, OTHER, SELFPAY | PROVIDERS: PCP Registered Nurse; Visit Provider Registered Nurse | DX: R74.8 Abnormal levels of other serum enzymes (principal); E53.8 Deficiency of other specified B group vitamins | CPT/HCPCS: 80053; 82607 ==

== ENCOUNTER → 2025-03-06 14:21 | Outpatient (BNVA) | payer MEDICARE, OTHER, SELFPAY | PROVIDERS: PCP Registered Nurse; Visit Provider Internal Medicine | DX: I10 Essential (primary) hypertension (principal); Z95.828 Presence of other vascular implants and grafts; Z86.718 Personal history of other venous thrombosis and embolism; Z87.891 Personal history of nicotine dependence | CPT/HCPCS: 99213 ==

== ENCOUNTER → 2025-04-10 07:51 | Outpatient (BNVA) | payer MEDICARE, OTHER, SELFPAY | PROVIDERS: PCP Registered Nurse; Visit Provider Registered Nurse | DX: J18.9 Pneumonia, unspecified organism (principal); R68.89 Other general symptoms and signs | CPT/HCPCS: 80053; 85025; 87400 ==

== ENCOUNTER → 2025-04-22 11:35 | Outpatient (BNVA) | payer MEDICARE, OTHER, SELFPAY | PROVIDERS: PCP Registered Nurse; Visit Provider Registered Nurse | DX: J40 Bronchitis, not specified as acute or chronic (principal) | CPT/HCPCS: 87400; 87426 ==

== ENCOUNTER → 2025-05-28 09:10 | Outpatient (BNVA) | payer MEDICARE, OTHER, SELFPAY | PROVIDERS: PCP Registered Nurse; Visit Provider Nurse Practitioner Family | DX: L57.8 Other skin changes due to chronic exposure to nonionizing radiation (principal); L81.4 Other melanin hyperpigmentation; L82.1 Other seborrheic keratosis; L73.8 Other specified follicular disorders; D18.01 Hemangioma of skin and subcutaneous tissue; L57.0 Actinic keratosis | CPT/HCPCS: 17000; 99213 ==

== ENCOUNTER 2025-05-29 07:24 | Day surgery (SDC) | payer MEDICARE, OTHER, SELFPAY ==
[2025-05-29] VITALS (14 sets, daily range): BP systolic 86–161; BP diastolic 47–92; PULSE 68–93; RESP 16–18; TEMP 36.7–37.7; O2SAT 90–99; BMI 52.1
[2025-05-29 08:42] LABS: INR 0.98 (0.8-1.2); Prothrombin Time 13.60 SECONDS (12.1-14.9)
--- NOTE | 2025-05-29 10:00 | ANES.PREANE2 ---
Pre-Anesthetic Assessment Height/Weight: Height 1.57 m Weight 129.274 kg Temp Pulse Resp BP Pulse Ox O2 Del Method O2 Flow Rate 98.1 F 83 16 119/72 91 Room Air 3 05/29/25 11:48 05/29/25 11:48 05/29/25 11:48 05/29/25 11:48 05/29/25 11:48 05/29/25 11:48 05/29/25 11:30 Preop Diagnosis: Menopause with increased endometrial stripe >1cm. Operation Date: 05/29/25 09:05 Proposed Procedures p Hysteroscopy with Dilatation and Curettage (D&C) 36910 R93.89(Not Applicable) - Arnaldo Winston MD s POSSIBLE Poylpectomy(Not Applicable) - Arnaldo Winston MD Familial anesthetic complications: none Was Beta Arina taken within 24 hours: Yes Was Clonidine taken within 24 hours: N/A Last intake: Intake Last Liquid Date 05/28/25 Last Liquid Time 20:00 Last Solid Date 05/28/25 Last Solid Time 19:00 Social Tobacco and No alcohol Exam alert, oriented x 3, clear to auscultation bilaterally and regular rate & rhythm Airway Mallampati: Class I Dentition: full History/ROS No significant history except as noted Pulmonary Exertional Dyspnea and Shortness of Breath pt states she got pneumonia in March 2025 and has been using an inhaler since, she last used it yesterday and feels that her breathing is at baseline this morning. She does not use O2 at home CV/HEM Deep Vein Thrombosis and Hypertension None reported Hepatic None reported GI None reported Metabolic Morbid Obesity [facility] [place] None reported Neuropsych Anxiety Anesthetic Plan ASA status: 3 Anesthesia: Anesthesia Evaluation and General Risk of > 500 ml blood loss (7ml/kg in children): Yes, adequate IV access and fluids planned Medications/Allergies Home Medications ?Medication ?Instructions ?Recorded ?Confirmed ?Last Taken ?Type cetirizine 10 mg tablet (Zyrtec) 10 mg PO DAILY PRN allergies 10/07/22 05/29/25 05/27/25 History fluticasone propionate 50 1 spray intranasal DAILY PRN 12/26/22 05/29/25 Unknown History mcg/actuation nasal allergies spray,suspension (Flonase Allergy Relief) nebulizer and supplies #1 ea 09/04/23 05/29/25 Unknown Rx docusate sodium 100 mg capsule 200 mg PO BID 04/22/24 05/29/25 05/28/25 History (Colace) potassium 99 mg tablet 198 mg PO DAILY 04/22/24 05/29/25 05/27/25 History epinephrine 0.3 mg/0.3 mL 0.3 mg (0.3 mL) IM Q10M PRN 01/07/25 05/29/25 Unknown Rx injection, auto-injector anaphylaxis #2 ea warfarin 5 mg tablet 5 mg PO DAILY #360 tabs 04/02/25 05/29/25 05/23/25 Rx albuterol sulfate 90 mcg/actuation 90 mcg inhalation DAILY 04/17/25 05/29/25 Unknown History aerosol inhaler (Ventolin HFA) fluoxetine 40 mg capsule 40 mg PO DAILY 90 days #90 caps 04/17/25 05/29/25 05/28/25 Rx buspirone 5 mg tablet 5 mg PO BID 05/14/25 05/29/25 05/21/25 History furosemide 20 mg tablet 20 mg PO DAILY 05/14/25 05/29/25 05/28/25 History hydrochlorothiazide 50 mg tablet 50 mg PO DAILY 05/14/25 05/29/25 05/28/25 History metoprolol succinate 25 mg 25 mg PO DAILY 05/14/25 05/29/25 05/29/25 History tablet,extended release 24 hr Allergies Allergy/AdvReac Type Severity Reaction Status Date / Time bee venom protein (honey bee) Allergy ALGY-Anaphy Verified 05/29/25 08:08 laxis ciprofloxacin Allergy Unknown Verified 05/29/25 08:08 egg Allergy Unknown Verified 05/29/25 08:08 hydrocodone Allergy Unknown Verified 05/29/25 08:08 milk Allergy Unknown Verified 05/29/25 08:08 procaine (From Novocain) Allergy Unknown Verified 05/29/25 08:08 Current Medications Generic Name Dose Route Start Last Admin Trade Name Freq PRN Reason Stop Dose Admin Sodium Chloride 1,000 mls @ 30 mls/hr 05/29/25 07:45 05/29/25 08:28 Sodium Chloride 0.9% IV 05/30/25 07:44 30 mls/hr .Q24H SILVESTRE Administration PFSH Anesthesia Medical History Abdominal hernia Coronary artery disease Hypercholesterolemia Allergic to bees Varicose veins of both lower extremities Venous stasis of both lower extremities Hx of deep venous thrombosis Hypertension Cubital tunnel syndrome on right CMC (carpometacarpal joint) sprains CMC arthritis, thumb, degenerative Encounter for monitoring Coumadin therapy Chronic deep vein thrombosis of left lower extremity Presence of IVC filter Surgical History Hx of cholecystectomy Hx of inguinal hernia repair Hx of exploratory laparotomy Hx of gastric bypass History of colon resection Family History Grandmother Cancer breast cancer(paternal) uterus(maternal) Mother Cancer throat Brother Heart disease Cancer Father Heart disease Denies family history of Diabetes Chronic kidney disease (CKD) Lung disease Social History Smoking and tobacco/nicotine status: former use of tobacco/nicotine Alcohol intake: current Alcohol intake frequency: holidays/special occasions only Substance/Drug Use: never Adopted: No Caregiver/support person: No Lives independently: No Household members: spouse Marital status: service: No Current occupational status: retired Sexually active: Yes Do you think of yourself as: Straight/Heterosexual Current gender identity: Female Data Anesthesia Coags 05/29/25 08:15 PT 13.60 INR 0.98 Cardiac Studies: Sestamibi Stress Test (Cardiology) 08/10/23
--- NOTE | 2025-05-29 10:03 | W.PM.OPSFHP ---
Same Day Surgery H&P Indication for Procedure/HPI DATE OF PROCEDURE: May 29, 2025 CHIEF COMPLAINT/INDICATIONFOR SURGICAL PROCEDURE: Menopause with increased endometrial stripe >1cm and recent post menopausal bleeding . PREOP DIAGNOSIS: Menopause with increased endometrial stripe >1cm. PLANNED PROCEDURE: Operation Date: 05/29/25 09:05 Proposed Procedures p Hysteroscopy with Dilatation and Curettage (D&C) 21811 R93.89(Not Applicable) - Arnaldo Winston MD s POSSIBLE Poylpectomy(Not Applicable) - Arnaldo Winston MD 72yo obese female on anticoagulation therapy stopped before procedure. Prior and current transvaginal ultrasound measurements of endometrial stripe: approximately 1.4 cm about a year ago and 1.6 cm on the most recent study. Threshold for further evaluation was discussed as 11 mm (1.1 cm) in the absence of bleeding. Reports no use of hormone therapy. States menopause occurred around age 41 but has had menopausal-like symptoms over the past year. Also state vaginal stain with blood. Uterus: 10.8 cm x 5.9 cm x 4.9 cm. Mildly enlarged anteverted uterus. No fibroid. Medications/Allergies* Home Medications ?Medication ?Instructions ?Recorded ?Confirmed ?Type cetirizine 10 mg tablet (Zyrtec) 10 mg PO DAILY PRN allergies 10/07/22 05/29/25 History fluticasone propionate 50 1 spray intranasal DAILY PRN 12/26/22 05/29/25 History mcg/actuation nasal allergies spray,suspension (Flonase Allergy Relief) docusate sodium 100 mg capsule 200 mg PO BID 04/22/24 05/29/25 History (Colace) potassium 99 mg tablet 198 mg PO DAILY 04/22/24 05/29/25 History albuterol sulfate 90 mcg/actuation 90 mcg inhalation DAILY 04/17/25 05/29/25 History aerosol inhaler (Ventolin HFA) buspirone 5 mg tablet 5 mg PO BID 05/14/25 05/29/25 History furosemide 20 mg tablet 20 mg PO DAILY 05/14/25 05/29/25 History hydrochlorothiazide 50 mg tablet 50 mg PO DAILY 05/14/25 05/29/25 History metoprolol succinate 25 mg 25 mg PO DAILY 05/14/25 05/29/25 History tablet,extended release 24 hr Allergies/Adverse Reactions Allergy/AdvReac Type Severity Reaction Status Date / Time bee venom protein (honey bee) Allergy ALGY-Anaphy Verified 05/29/25 08:08 laxis ciprofloxacin Allergy Unknown Verified 05/29/25 08:08 egg Allergy Unknown Verified 05/29/25 08:08 hydrocodone Allergy Unknown Verified 05/29/25 08:08 milk Allergy Unknown Verified 05/29/25 08:08 procaine (From Novocain) Allergy Unknown Verified 05/29/25 08:08 Current Medications: Generic Name Dose Route Start Last Admin Trade Name Ferq PRN Reason Stop Dose Admin Sodium Chloride 1,000 mls @ 30 mls/hr 05/29/25 07:45 05/29/25 08:28 Sodium Chloride 0.9% IV 05/30/25 07:44 30 mls/hr .Q24H SILVESTRE Administration Pertinent History/Comorbid Conditions* Medical History (Updated 02/20/25 @ 17:05 by Arnaldo Winston MD) Abdominal hernia Coronary artery disease Hypercholesterolemia Allergic to bees Varicose veins of both lower extremities Venous stasis of both lower extremities Hx of deep venous thrombosis Hypertension Cubital tunnel syndrome on right CMC (carpometacarpal joint) sprains CMC arthritis, thumb, degenerative Encounter for monitoring Coumadin therapy Chronic deep vein thrombosis of left lower extremity Presence of IVC filter Surgical History (Updated 12/03/19 @ 20:57 by Racquel Beverly MD) Hx of cholecystectomy Hx of inguinal hernia repair Hx of exploratory laparotomy Hx of gastric bypass History of colon resection Family History (Updated 05/26/22 @ 15:33 by Giuliana Quiroga LPN) Heart disease Brother Father Cancer Grandmother breast cancer(paternal) uterus(maternal) Mother throat Brother Denies family history of Diabetes Chronic kidney disease (CKD) Lung disease Social History Smoking and tobacco/nicotine status: former use of tobacco/nicotine Alcohol intake: current Alcohol intake frequency: holidays/special occasions only Substance/Drug Use: never Adopted: No Caregiver/support person: No Lives independently: No Household members: spouse Marital status: service: No Current occupational status: retired Sexually active: Yes Do you think of yourself as: Straight/Heterosexual Current gender identity: Female Pertinent Exam Findings alert, oriented x 3, clear to auscultation bilaterally and regular rate & rhythm Recommendations Surgery/Procedure today Coding Level of Care Code Acute Code for Chg Fwd
--- NOTE | 2025-05-29 10:11 | P.OP_ITS ---
Operative Report Date of procedure: May 29, 2025 Pre-op diagnosis: 75yo,BMI 52, increased endometrial stripe thickness postmenopausal Post-op diagnosis: Same Post-op findings: Blood in uterus with visible tissue including possible polyps Procedure done: Hysteroscopy D&C Specimens removed/disposition: Endometrial curretings to pathology Surgeon: Arnaldo Winston MD Estimated blood loss: 15ml Complications: None Findings: Increased endometrial tissue, possible polyps Brief History: 72yo obese female on anticoagulation therapy stopped before procedure. Prior and current transvaginal ultrasound measurements of endometrial stripe: approxim ately 1.4 cm about a year ago and 1.6 cm on the most recent study. Threshold for further evaluation was discussed as 11 mm (1.1 cm) in the absence of bleeding. Reports no use of hormone therapy. States menopause occurred around age 41 but has had menopausal-like symptoms over the past year. Also state vaginal stain with blood. Uterus: 10.8 cm x 5.9 cm x 4.9 cm. Procedure: The patient was taken to the operating room and placed in dorsal lithotomy position. After adequate anesthesia was obtained, a time-out was performed. The patient was prepped and draped in the usual sterile fashion. A weighted speculum was placed in the vagina. The cervix was visualized and grasped with a tenaculum. The uterus was sounded to 9 cm. The cervix was dilated using Valeriano metal dilators to accommodate the hysteroscope. A diagnostic hysteroscope was introduced into the endocervical canal and advanced into the uterine cavity under direct visualization using NS as the distending medium. Systematic examination of the endocervical canal, endometrial cavity, bilateral tubal ostia, anterior wall, posterior wall, and fundus was performed. The uterine cavity appeared normal with no evidence of polyps, fibroids, adhesions, or other structural abnormalities. Following completion of hysteroscopy, the hysteroscope was removed. Sharp curettage of the endometrial cavity was then performed in a systematic fashion. Tissue was obtained and submitted to pathology for histopathologic evaluation. The tenaculum and speculum were removed. Hemostasis was confirmed. The patient tolerated the procedure well without complications and was taken to the recovery room in stable condition.
--- NOTE | 2025-05-29 10:11 | P.OP_ITS ---
Brief Operative Note Date of procedure: 05/29/25 Pre-op diagnosis: Post menopausal Increased endometrial stripe, and AUB Post-op diagnosis: same Procedure Done: Hysteroscopy with D&C Findings: * Hysteroscopic visualization revealed increased tissue, likely polyp and 6-7cm cavity * Endometrial cavity was thickened * Endometrial tissue submitted Surgeon: Arnaldo Winston Estimated blood loss (mL): 15 Complications: None Post-op Plan: Discharge Status:?Discharged home in stable condition on postoperative day 0 Discharge Instructions Provided: * Pelvic rest (no intercourse, tampons, or douching) for 2-4 weeks * Expect light vaginal bleeding or spotting for several days * May resume normal diet and activities as tolerated * Avoid heavy lifting (>10-15 lbs) for 1-2 weeks * Return precautions discussed: heavy bleeding (soaking more than one pad per hour), fever >100.4?F, severe abdominal pain, or foul-smelling discharge * Contact information for surgical team provided
--- NOTE | 2025-05-29 10:11 | PM.OP2 ---
Brief Operative Note Date of procedure: 05/29/25 Pre-op diagnosis: Post menopausal Increased endometrial stripe, and AUB Post-op diagnosis: same Procedure Done: Hysteroscopy with D&C Findings: Hysteroscopic visualization revealed increased tissue, likely polyp and 6-7cm cavity Endometrial cavity was thickened Endometrial tissue submitted Surgeon: Arnaldo Winston Estimated blood loss (mL): 15 Complications: None Post-op Plan: Discharge Status:?Discharged home in stable condition on postoperative day 0 Discharge Instructions Provided: Pelvic rest (no intercourse, tampons, or douching) for 2-4 weeks Expect light vaginal bleeding or spotting for several days May resume normal diet and activities as tolerated Avoid heavy lifting (>10-15 lbs) for 1-2 weeks Return precautions discussed: heavy bleeding (soaking more than one pad per hour), fever >100.4?F, severe abdominal pain, or foul-smelling discharge Contact information for surgical team provided
--- NOTE | 2025-05-29 14:05 | ANE.PACU2 ---
Inpatient post-anesthesia follow up: Airway intact: Yes Vital signs: Temperature 98.1 F Pulse Rate 68 Respiratory Rate 18 Blood Pressure 118/66 Pulse Oximetry 93 Oxygen Delivery Me thod Room Air Oxygen Flow Rate 2 Fraction of Inspir ed Oxygen Hydration adequate: Yes Nausea and vomiting: No Pain level: 1 Mental status: Baseline
--- NOTE | 2025-05-29 14:27 | PC.NURSE ---
Pt's O2 was 93 on room air. Pt was evaluated by Dr. Jorge bronson and stated pt was ok to discharge home.
[2025-06-04 14:11] LABS: Mismatch Repari Proteins-IHC See Report
== END 2025-05-29 14:05 | disposition home or self-care (01) ==
PROVIDERS: PCP Registered Nurse; Visit Provider Obstetrics & Gynecology
PROC: 0UB98ZZ Excision of Uterus, Via Natural or Artificial Opening Endoscopic (ICD-10-PCS; CPT 58558; principal; 2025-05-29 09:05)
DX: R93.89 Abnormal findings on diagnostic imaging of other specified body structures (principal); C54.1 Malignant neoplasm of endometrium; Z79.01 Long term (current) use of anticoagulants; I25.10 Atherosclerotic heart disease of native coronary artery without angina pectoris; Z86.718 Personal history of other venous thrombosis and embolism; I10 Essential (primary) hypertension; Z95.828 Presence of other vascular implants and grafts; Z80.3 Family history of malignant neoplasm of breast; Z80.8 Family history of malignant neoplasm of other organs or systems; Z87.891 Personal history of nicotine dependence; E66.01 Morbid (severe) obesity due to excess calories; Z68.43 Body mass index [BMI] 50.0-59.9, adult; F41.9 Anxiety disorder, unspecified
CPT/HCPCS: 58558; 51702; 85610; 88305; 88341; 88342; A4216; J1100; J2250; J2405; J2704; J3010; J7030; J9999

== ENCOUNTER → 2025-06-03 10:39 | Outpatient (BNVA) | payer MEDICARE, OTHER, SELFPAY | PROVIDERS: PCP Registered Nurse; Visit Provider Registered Nurse | DX: I10 Essential (primary) hypertension (principal) | CPT/HCPCS: 80048; 80061 ==